=== PATIENT | male | born 1960 | race Caucasian/White ===

== ENCOUNTER 2018-05-15 01:01 | Outpatient (CLI) | payer OTHER, SELFPAY ==
[2018-05-15 14:30] LABS: Abs Immature Grans 0.01 k/cumm (0.0-0.09); Absolute Basophil Count 0.07 k/cumm (0.0-0.2); Absolute Eosinophil Count 0.18 k/cumm (0.0-0.7); Absolute Monocyte Count 0.89 k/cumm (0.11-0.7); Absolute Neutrophil Count 6.01 k/cumm (1.2-6.7); Basophils % 0.8; Eosinophils % 2.1; HGB 14.1 g/dL (13.5-17.5); Immature Grans % 0.1; Lymphocytes % 17.3; Mean Corp. HGB Concentration 35.3 g/dL (32.0-36.0); Mean Corpuscular Hemoglobin 30.5 pg (27.0-33.0); Mean Corpuscular Volume 86.6 fL (80-95); Mean Platelet Volume 9.7 fL (8.0-11.0); Monocytes % 10.3; Neutrophils % 69.4; Platelet Count 278 x1000/uL (130-400); RBC 4.62 m/cumm (4.50-6.00); RBC Distribution Width 13.4 % (11.8-14.1); White Blood Cell Count 8.66 k/cumm (4.4-10.8)
[2018-05-15 15:05] LABS: ALT 36 U/L (12-78); AST 21 U/L (15-37); Albumin 3.7 g/dL (3.4-5.0); Alkaline Phosphatase 65 U/L (46-116); Anion Gap 8.9 mmol/L (3-11); BUN 18 mg/dL (7-18); Bilirubin, Total 0.3 mg/dL (0.2-1.0); C-Reactive Protein 1.01 mg/dL (0.0-0.3); CO2 28.1 mmol/L (21.0-32.0); CREATININE 1.01 mg/dL (0.70-1.30); Calcium 9.4 mg/dL (8.5-10.1); Chloride 105 mmol/L (98-107); Glucose 98 mg/dL (70-100); Potassium 3.8 mmol/L (3.5-5.1); Sodium 142 mmol/L (136-145); Total Protein 7.3 g/dL (6.4-8.2)
[2018-05-15 15:25] LABS: ESR 7 MM/HR (1-20)
== END 2018-05-15 01:21 ==
PROVIDERS: PCP Family Medicine; Visit Provider Internal Medicine Rheumatology
DX: M85.851 Other specified disorders of bone density and structure, right thigh (principal); M85.852 Other specified disorders of bone density and structure, left thigh; M35.3 Polymyalgia rheumatica; R21 Rash and other nonspecific skin eruption; Z79.52 Long term (current) use of systemic steroids
CPT/HCPCS: 36415; 80053; 85652; 85025; 86140

== ENCOUNTER 2018-05-28 00:37 | Outpatient (CLI) | payer OTHER, SELFPAY ==
--- NOTE | 2018-05-28 15:00 | DI.RAD_ITS ---
SYMPTOM/DIAGNOSIS: OSTEOPENIA, ON CHRONIC STEROIDS FOR PMR, M85.851, M85.852 DEXA SCAN: The examination was carried out according to the usual protocol. The scanogram is unremarkable save for mild degenerative changes. For the left forearm, a T score of 1.7 and a Z score of 2.4 are within the normal range. For the left hip, a T score of -0.3 and a Z score of 0.1 indicate osteopenia and represent a -1.4% interval decrease in mineralization when compared with the previous study of 11/23/15. For the lumbar spine, a T score of 0.2 and a Z score of 0.8 are within the normal range and represent a +1% interval increase in mineralization when compared with the prior study of 11/23/15.
== END 2018-05-28 00:57 ==
PROVIDERS: PCP Family Medicine; Visit Provider Internal Medicine Rheumatology
DX: M85.88 Other specified disorders of bone density and structure, other site (principal); Z79.52 Long term (current) use of systemic steroids
CPT/HCPCS: 77080

== ENCOUNTER 2018-07-18 01:39 | Outpatient (CLI) | payer OTHER, SELFPAY ==
--- NOTE | 2018-07-18 08:01 | DI.CT_ITS ---
SYMPTOM/DIAGNOSIS: RT FLANK PAIN, HEMATURIA, HISTORY OF KIDNEY STONE R10.9 CT ABDOMEN AND PELVIS: Renal colic CT was performed according to protocol. Comparison is 11/14/10 No acute findings are seen in the lung bases. The lack of IV contrast does limit evaluation of the abdominal and pelvic organs. There is diffuse decreased attenuation of the liver consistent with hepatic steatosis. The gallbladder is negative. There is no biliary ductal dilatation. The pancreas, spleen and adrenal glands are grossly unremarkable. There is a nonobstructing 1 cm stone in the superior pole of the right kidney. No hydronephrosis or ureterolithiasis is present. The left kidney shows no nephrolithiasis, ureterolithiasis or obstruction. The urinary bladder is intact. Reproductive organs are unremarkable. There is atherosclerosis of the abdominal aorta but no aneurysmal dilatation is present. No significant abdominal or pelvic adenopathy, ascites or pneumoperitoneum is present. The bowel shows no evidence of obstruction or inflammation. There is a normal appendix present. There are mild degenerative changes seen in the spine. IMPRESSION: 1 cm stone in the superior pole of the right kidney. 2. No evidence of obstructive uropathy.
== END 2018-07-18 01:59 ==
PROVIDERS: PCP Family Medicine; Visit Provider Family Medicine
DX: R10.31 Right lower quadrant pain (principal); R31.29 Other microscopic hematuria; N20.0 Calculus of kidney
CPT/HCPCS: 74176

== ENCOUNTER 2018-08-22 07:08 | Day surgery (SDC) | payer OTHER, SELFPAY ==
[2018-08-22] VITALS (7 sets, daily range): BP systolic 148–181; BP diastolic 75–93; PULSE 63–81; RESP 11–20; TEMP 35.8–36.6; O2SAT 95–100
[2018-08-22] MEDS: Lactated Ringers 1,000 ML 80 ML IV (07:44)
[2018-08-22] MEDS: ceFAZolin 1 GM/50 ML BAG IVPB (09:08)
[2018-08-22] MEDS: Lidocaine 2% Jelly 11 ML SYR (09:14)
[2018-08-22] MEDS: Omnipaque 300 MG/ML 50 ML BTL (10:00)
--- NOTE | 2018-08-22 10:20 | W.PM.DSUDISC ---
Discharge Plan Disposition Patient Disposition: HOME Condition: Stable Discharge Details Reason For Visit: surgery Attending Provider: Philip Bautista Primary Care Provider: Alexandru Faith Home Meds and New Rx's Prescriptions: No Action alendronate 35 mg tablet 35 mg PO QWEEK RF: 0 prednisone 1 mg tablet,delayed release (DR/EC) 3 mg PO DAILY RF: 0 cholecalciferol (vitamin D3) 2,000 UNIT tablet 2,000 unit PO DAILY RF: 0 amlodipine 5 mg tablet 7.5 mg PO DAILY Qty: 135 RF: 3 loratadine 10 MG tablet 10 mg PO PRN PRNRF: 0 Discharge Instructions Additional Instructions: No need to strain urine Pt will be contacted by my office to arrange cystoscopy, remove ureteral stent, repeat flexible ureteroscopy and removal of any residual stone fragments Pt allergic to hydrocodone/oxycodone but pts tells me he does well with hydromorphone - will print and sign script Will also escribe Flomax (for ureteral spasms) and oral Toradol script Stand Alone Forms: [facility] ([facility]) Activity:: Activity as Tolerated Diet:: As Tolerated Discharge Orders Discharge Orders: Discharge Order (Routine); Ordered 08/22/18 Ordered By: Philip Bautista DS: Diagnosis Discharge Diagnosis (1) Kidney stone on right side: Status: Acute
--- NOTE | 2018-08-22 10:30 | DI.RAD_ITS ---
SYMPTOMS/DIAGNOSIS: RT KIDNEY STONE C-ARM FLUOROSCOPY: Fluoroscopy Time: 25.7s C-arm fluoroscopy was utilized by Dr. Bautista during retrograde study. Hardcopy shows right ureteral stent in position.
[2018-08-22] MEDS: Phenazopyridine 200 MG TAB PO (10:39)
--- NOTE | 2018-08-23 07:10 | ROE_ITS ---
REPORT OF OPERATIVE PROCEDURE DATE OF PROCEDURE August 22, 2018 PREOPERATIVE DIAGNOSIS Right renal stone. POSTOPERATIVE DIAGNOSIS Right renal stone. PROCEDURE Cystoscopy, right retrograde pyelogram, right flexible ureteroscopy, Holmium laser of right renal sto ne, extraction of multiple stone fragments, insert right ureteral stent. SURGEON Philip Bautista M.D. ANESTHESIA General. COMPLICATIONS None. ESTIMATED BLOOD LOSS Minimal. HISTORY This is a 58-year-old gentleman who has a history of hematuria. He was found to have a 1-cm right upp er pole stone. He has been having intermittent back pain. He presents for ureteroscopic stone manipul ation. OPERATIVE REPORT The patient was brought to the Operating Room on 08/22/18. After successful induction of general ane sthesia, he was placed in the dorsal lithotomy position. His genitalia was prepped and draped. A #22 Serbian rigid cystoscope was passed through the urethra, into the bladder. The urethra and bladd er were inspected with the 30-degree lens. The pendulous, bulbous and membranous urethras all appeared normal with no strictures. The prostatic urethra showed some lateral lobe enlargement. The bladder neck was entered and the mucosa was inspect ed. The right ureteral orifice was identified. The orifice was cannulated with a #6-Serbian access cathete r. A retrograde film was obtained using Omnipaque. On the fluoroscopy for the retrograde pyelogram, a filling defect was seen in one of the upper pole c alyces. A Dual lumen catheter was then advanced over the wire. A second wire was positioned. A ureteral acces s sheath was advanced over one of the wires and advanced to the proximal ureter. We left one of the wires in place to function as a safety wire. I then passed the flexible ureterosco pe through the access catheter and maneuvered up the remainder of the ureter. We were able to negotiate into one of the upper pole calyces and visualize the large stone. We were a ble to treat the stone using a 272 Micron Holmium laser fiber. We used a power setting of 800 and a r ate of 8. The stone fragmented quite well. We were able to grasp numerous large stone fragments using a zero-tip stone basket. Toward the end of the procedure, due to some of the bleeding caused from ma nipulation, visibility became compromised, instead of proceeding we decided to do a staged procedure. We passed a 4.8 Serbian variable length stent over the safety wire. We positioned the stent with a pr oximal end up in the renal pelvis and the distal end down in the bladder. We will plan on returning t o the Operating Room in one to two weeks. We will remove the stent, do a retrograde pyelogram, pass t he flexible ureteroscope up to the kidney and make sure that there are no remaining significant stone fragments. All of the stone fragments that were removed at this session were sent to Pathology for chemical anal ysis. CC: Alexandru Faith D.O.
[2018-08-26 16:01] LABS: Source: Right Kidney
== END 2018-08-22 11:56 | disposition home or self-care (01) ==
PROVIDERS: PCP Family Medicine; Visit Provider Urology
PROC: (CPT 52356; principal; 2018-08-22 08:30)
DX: N20.0 Calculus of kidney (principal); I10 Essential (primary) hypertension; Z96.0 Presence of urogenital implants
CPT/HCPCS: 52356; 74420; 82365; J0690; Q9967

== ENCOUNTER 2018-08-29 09:01 | Day surgery (SDC) | payer OTHER, SELFPAY ==
[2018-08-29 09:20] VITALS: BP 137/88; PULSE 68; RESP 16; TEMP 36.6; O2SAT 97
[2018-08-29] MEDS: Lactated Ringers 1,000 ML 80 ML IV (09:42)
[2018-08-29] MEDS: ceFAZolin 1 GM/50 ML BAG IVPB (11:59)
[2018-08-29] MEDS: Lidocaine 2% Jelly 6 ML SYR (12:14)
[2018-08-29] MEDS: Omnipaque 300 MG/ML 50 ML BTL (12:18)
--- NOTE | 2018-08-29 12:20 | DI.RAD_ITS ---
SYMPTOMS/DIAGNOSIS: RIGHT KIDNEY STONE RETROGRADE IN THE OR: Fluoroscopy Time: 43 seconds Images submitted from the OR demonstrate positioning of a right ureteral stent by Dr. Bautista. Please see the procedure report for further information.
--- NOTE | 2018-08-29 12:35 | W.PM.DSUDISC ---
Discharge Plan Disposition Patient Disposition: HOME Condition: Stable Discharge Details Reason For Visit: STENT REMOVAL Attending Provider: Philip Bautista Primary Care Provider: Alexandru Faith Home Meds and New Rx's Prescriptions: No Action alendronate 35 mg tablet 35 mg PO QWEEK RF: 0 prednisone 1 mg tablet,delayed release (DR/EC) 3 mg PO DAILY RF: 0 hydromorphone 4 mg tablet 4 mg PO Q6H MDD 4 PRN (Reason: pain) Qty: 20 RF: 0 cholecalciferol (vitamin D3) 2,000 UNIT tablet 2,000 unit PO DAILY RF: 0 amlodipine 5 mg tablet 7.5 mg PO DAILY Qty: 135 RF: 3 loratadine 10 MG tablet 10 mg PO PRN PRNRF: 0 ketorolac 10 mg Tablet 30 mg PO Q6H PRNRF: 0 Discharge Instructions Additional Instructions: No need to strain urine F/U with me 4 to 6 weeks with renal US prior to visit Stand Alone Forms: [facility] ([facility]) Activity:: Activity as Tolerated Activity:: Activity as Tolerated Diet:: As Tolerated Discharge Orders Discharge Orders: Discharge Order (Routine); Ordered 08/29/18 Ordered By: Philip Bautista DS: Diagnosis Discharge Diagnosis (1) Kidney stone on right side: Status: Acute
[2018-08-29 13:15] VITALS: BP 150/90; PULSE 59; RESP 18; TEMP 35.3; O2SAT 97
--- NOTE | 2018-08-30 07:44 | ROE_ITS ---
REPORT OF OPERATIVE PROCEDURE DATE OF PROCEDURE August 29, 2018 PREOPERATIVE DIAGNOSIS Right kidney stone. POSTOPERATIVE DIAGNOSIS Right kidney stone. PROCEDURES Cystoscopy, remove right ureteral stent, right retrograde pyelogram, right flexible ureteroscopy, bas ket extraction of stone fragments. SURGEON Philip Bautista M.D. ANESTHESIA General. COMPLICATIONS None. ESTIMATED BLOOD LOSS Minimal. HISTORY This is a 58-year-old gentleman who has a history of a large right-sided kidney stone. About a week a go, he underwent ureteroscopy with Holmium laser of the stone. We were able to extract the majority o f the stone fragments, but visibility became an issue and we were concerned that there remained some stone fragments within visible blood clot in the kidney lumen. We then decided to place a ureteral st ent and return a week or two later for a staged ureteroscopy procedure. He returns for the second in these stages. OPERATIVE REPORT The patient was brought to the Operating Room on 08/29/2018. He was given preoperative IV antibiotics. After successful induction of General anesthesia, he was placed in the dorsal lithotomy position. His genitalia was prepped and draped. A #22-Jamaican rigid cystoscopy was passed through the urethra into the bladder. The bladder was inspec cynthia with a 30-degree lens. There was a marked amount of edema around the right ureteral orifice. The stent could be seen protrud ing from the orifice. The stent was grasped in alligator forceps and brought out to the level of the urethral meatus. A Glidewire was then advanced through the lumen of the stent. Once the wire was seen up in the right kidney fluoroscopically, we removed the stent leaving the wire in place. A ureteral access catheter was then advanced over the wire. Once the access catheter was seen in the mid ureter, we removed the wire. A retrograde pyelogram was then obtained. There did appear to be some filling defects in the upper po le calyx. We then replaced the Glidewire and removed the access catheter. A Dual lumen catheter was placed foll owed by a second wire. We chose one of the wires as a working wire and the other as a safety wire. A ureteral access sheath was advanced over the working wire. The flexible ureteral scope was then passed through the access sheath and maneuvered up to the right kidney. Some blood clot was seen in the upper pole calyx and there did appear to be two stone fragmen ts adherent to these clots. I was able to grasp the stone fragments in a Zero Tip stone basket and re move these in their entirety. I then re-introduced the scope and saw no additional stone fragments. We elected not to replace his s tent. The patient tolerated the procedure well. There were no complications since we had samples of the sto ne from a week ago sent for stone analysis, we did not re-send today's specimens. CC: Alexandru Faith D.O.
== END 2018-08-29 13:40 | disposition home or self-care (01) ==
PROVIDERS: PCP Family Medicine; Visit Provider Urology
PROC: (CPT 52352; principal; 2018-08-29 11:30)
DX: N20.0 Calculus of kidney (principal); Z96.0 Presence of urogenital implants
CPT/HCPCS: 52352; 74420; J0131; J0690; J1100; J1885; J2250; J2405; J3010; Q9967

== ENCOUNTER 2018-10-11 01:36 | Outpatient (CLI) | payer OTHER, SELFPAY ==
--- NOTE | 2018-10-11 06:52 | DI.US_ITS ---
SYMPTOM/DIAGNOSIS: CALCULUS OF KIDNEY N20.0, ? HYDRONEPHROSIS, S/P URETEROSCOPY RENAL ULTRASOUND: Comparison CT scan is 07/18/18 There is mild dilatation of the right renal pelvis. There is normal blood flow to the right kidney. The left kidney measures 11 cm long. No renal mass, calculus or obstruction is seen sonographically. There is normal blood flow to the left kidney. The pre-void urinary bladder volume is 24 cc. The bladder wall appeared smooth. No intraluminal masses were seen. Both ureteral jets were visualized. The post void urinary bladder volume is 5 cc. The prostatic volume is 26 cc. IMPRESSION: 1. Right nephrolithiasis 2. Mild dilatation of the right renal pelvis. This may represent hydronephrosis vs prominent extra renal pelvis.
== END 2018-10-11 01:56 ==
PROVIDERS: PCP Family Medicine; Visit Provider Urology
DX: N20.0 Calculus of kidney (principal); R93.89 Abnormal findings on diagnostic imaging of other specified body structures
CPT/HCPCS: 76770

== ENCOUNTER 2018-10-20 02:12 | Outpatient (CLI) | payer OTHER, SELFPAY ==
[2018-10-20 09:36] LABS: Abs Immature Grans 0.02 k/cumm (0.0-0.09); Absolute Eosinophil Count 0.24 k/cumm (0.0-0.7); Absolute Lymphocyte Count 1.37 k/cumm (1.2-3.4); Absolute Monocyte Count 0.75 k/cumm (0.11-0.7); Absolute Neutrophil Count 8.53 k/cumm (1.2-6.7); Basophils % 0.5; Eosinophils % 2.2; HGB 15.3 g/dL (13.5-17.5); Immature Grans % 0.2; Lymphocytes % 12.5; Mean Corp. HGB Concentration 35.6 g/dL (32.0-36.0); Mean Corpuscular Hemoglobin 30.7 pg (27.0-33.0); Mean Corpuscular Volume 86.2 fL (80-95); Mean Platelet Volume 10.5 fL (8.0-11.0); Monocytes % 6.8; Neutrophils % 77.8; Platelet Count 239 x1000/uL (130-400); RBC 4.99 m/cumm (4.50-6.00); RBC Distribution Width 13.2 % (11.8-14.1); White Blood Cell Count 10.97 k/cumm (4.4-10.8)
[2018-10-20 09:39] LABS: Absolute Basophil Count 0.05 k/cumm (0.0-0.2)
[2018-10-20 10:41] LABS: ALT 44 U/L (12-78); AST 24 U/L (15-37); Alkaline Phosphatase 65 U/L (46-116); Anion Gap 10.8 mmol/L (3-11); BUN 15 mg/dL (7-18); Bilirubin, Total 0.6 mg/dL (0.2-1.0); CO2 26.2 mmol/L (21.0-32.0); CREATININE 0.86 mg/dL (0.70-1.30); Calcium 9.3 mg/dL (8.5-10.1); Calculated LDL 139; Chloride 102 mmol/L (98-107); Cholesterol 238 mg/dL (50-200); Glucose 111 mg/dL (70-100); HDL Cholesterol 64 mg/dL (40-60); Potassium 4.2 mmol/L (3.5-5.1); Sodium 139 mmol/L (136-145); Total Protein 7.1 g/dL (6.4-8.2); Triglyceride 179 mg/dL (30-150)
[2018-10-20 10:52] LABS: C-Reactive Protein 0.23 mg/dL (0.0-0.3)
[2018-10-20 10:55] LABS: ESR 4 MM/HR (1-20)
== END 2018-10-20 02:32 ==
PROVIDERS: PCP Family Medicine; Visit Provider Internal Medicine Rheumatology
DX: M35.3 Polymyalgia rheumatica (principal); M85.80 Other specified disorders of bone density and structure, unspecified site; G56.02 Carpal tunnel syndrome, left upper limb; Z79.52 Long term (current) use of systemic steroids
CPT/HCPCS: 36415; 80053; 80061; 83721; 85652; 85025; 86140

== ENCOUNTER 2018-12-13 02:20 | Outpatient (CLI) | payer OTHER, SELFPAY ==
--- NOTE | 2018-12-13 14:16 | DI.US_ITS ---
SYMPTOMS/DIAGNOSIS: PERSISTENT HYDRONEPHROSIS, KIDNEY STONE ON RIGHT SIDE, N20.0 RENAL ULTRASOUND: The kidneys are normal in size and shape. There appears to be mild hydronephrosis on the right, slightly less prominent than on most recent ultrasound of 10/11/2018. There is an echogenic focus of the right kidney in the mid pole, measuring about 4 mm in diameter. This corresponds with a calculus identified on CT on 07/18/2018. No additional stone seen. No left hydronephrosis or nephrolithiasis. Urinary bladder is unremarkable in appearance with prevoid and postvoid urinary bladder volume measurements 41 cc and 7 cc, respectively. Ureteral jets were visualized bilaterally. CONCLUSION: Mild right hydronephrosis, mid pole right renal calculus.
== END 2018-12-13 02:40 ==
PROVIDERS: PCP Family Medicine; Visit Provider Urology
DX: N13.39 Other hydronephrosis (principal)
CPT/HCPCS: 76770

== ENCOUNTER 2019-06-25 14:21 | Outpatient (CLI) | payer OTHER, SELFPAY ==
[2019-06-25 14:39] LABS: Absolute Basophil Count 0.06 k/cumm (0.0-0.2); Absolute Eosinophil Count 0.23 k/cumm (0.0-0.7); Absolute Lymphocyte Count 1.66 k/cumm (1.2-3.4); Absolute Monocyte Count 0.63 k/cumm (0.11-0.7); Absolute Neutrophil Count 4.44 k/cumm (1.2-6.7); Basophils % 0.9; Eosinophils % 3.3; HCT 41.2 % (40.0-50.0); HGB 14.6 g/dL (13.5-17.5); Lymphocytes % 23.6; Mean Corp. HGB Concentration 35.4 g/dL (32.0-36.0); Mean Corpuscular Hemoglobin 30.5 pg (27.0-33.0); Mean Corpuscular Volume 86.2 fL (80-95); Mean Platelet Volume 10.1 fL (8.0-11.0); Neutrophils % 63.2; Platelet Count 265 x1000/uL (130-400); RBC 4.78 m/cumm (4.50-6.00); RBC Distribution Width 13.2 % (11.8-14.1); White Blood Cell Count 7.02 k/cumm (4.4-10.8)
[2019-06-25 15:27] LABS: ESR 8 mm/hr (1-20)
[2019-06-25 15:38] LABS: ALT 45 U/L (16-63); AST 25 U/L (15-37); Alkaline Phosphatase 53 U/L (46-116); Anion Gap 8.9 mmol/L (3-11); BUN 13 mg/dL (7-18); Bilirubin, Total 0.3 mg/dL (0.2-1.0); C-Reactive Protein 0.35 mg/dL (0.0-0.3); CO2 29.1 mmol/L (21.0-32.0); CREATININE 0.82 mg/dL (0.70-1.30); Chloride 105 mmol/L (98-107); Glucose 94 mg/dL (74-106); Sodium 143 mmol/L (136-145); Total Protein 6.8 g/dL (6.4-8.2)
== END 2019-06-25 14:41 ==
PROVIDERS: PCP Family Medicine; Visit Provider Internal Medicine Rheumatology
DX: M35.3 Polymyalgia rheumatica (principal); Z79.899 Other long term (current) drug therapy
CPT/HCPCS: 36415; 80053; 85652; 85025; 86140

== ENCOUNTER 2019-12-18 01:03 | Outpatient (CLI) | payer OTHER, SELFPAY ==
--- NOTE | 2019-12-18 07:30 | DI.US_ITS ---
EXAM: US RENAL CLINICAL HISTORY: monitor stones yearly,RT KIDNEY STONE,N20.0. TECHNIQUE: Up scale, color and spectral Doppler were used. COMPARISON: CT CT renal colic wo from 07/18/2018 US US renal from 12/13/2018 FINDINGS: Renal size in cm: Right: 11.6. Left: 11.5. Echogenicity: Normal. Hydronephrosis: No. Cyst or mass: No. Nephrolithiasis: The echogenic focus in the midpole of the right kidney appears stable. There is a 2 nd echogenic focus in the right kidney superiorly measuring 4.6 mm. Other findings: None. Bladder:Not adequately filled for examination. 7.2 cc. Ureteral jets: Right: Not visualized on this exam. Left: Not visualized on this exam. Prevoid vol:7.2 cc cc Postvoid vol:Bladder not adequately filled. Cc Prostate: 37 cc Renal color flow: Symmetric and within normal limits. IMPRESSION: 1. Stable echogenic focus in the right kidney. Second echogenic focus seen in superior pole of the r ight kidney. These likely reflect nonobstructing stones. 2. Enlarged prostate. 3. No hydronephrosis. DATA REPOSITORY:
== END 2019-12-18 01:23 ==
PROVIDERS: PCP Family Medicine; Visit Provider Urology
DX: N20.0 Calculus of kidney (principal); N40.0 Benign prostatic hyperplasia without lower urinary tract symptoms
CPT/HCPCS: 76770

== ENCOUNTER 2019-12-31 03:05 | Outpatient (CLI) | payer OTHER, SELFPAY ==
[2019-12-31 16:33] LABS: ESR 9 mm/hr (1-20)
[2019-12-31 16:47] LABS: C-Reactive Protein 0.95 mg/dL (0.0-0.3)
== END 2019-12-31 03:25 ==
PROVIDERS: PCP Family Medicine; Visit Provider Internal Medicine Rheumatology
DX: M35.3 Polymyalgia rheumatica (principal); M85.80 Other specified disorders of bone density and structure, unspecified site; Z79.52 Long term (current) use of systemic steroids
CPT/HCPCS: 36415; 85652; 86140

== ENCOUNTER 2020-01-19 01:20 | Outpatient (CLI) | payer OTHER, SELFPAY ==
--- NOTE | 2020-01-19 14:50 | DI.MRI_ITS ---
EXAM: MR LOWER EXTREMITY RT WO CLINICAL HISTORY: RT FOOT PAIN, M79.671, SWELLING OVER CALCANEUS MID FOOT PLANTAR FASCIA. TECHNIQUE: Multiplanar multisequence MRI was performed. COMPARISON: No exams were available for comparison FINDINGS: MR examination the foot was performed according to the usual protocol. The imaging field does not co ntain Achilles tendon. The patient reportedly has suspected plantar fasciitis midfoot. There is abnormal signal of the calcaneus adjacent to plantar fascial attachment. No other significa nt bony signal seen. There is abnormal signal in the flexor digitorum brevis and abductor digiti minimi muscles at the hin dfoot consistent with muscle edema/tearing. There is thickening of the plantar fascia adjacent to its calcaneal attachment with a tear of the mitesh tral band with approximately 6 millimeter diastasis. The medial and lateral bands show mild thickeni ng and edema but do not appear torn. More distally the plantar fascia appears intact. No tendinous abnormality identified. No significan t ligamentous abnormality seen. Alignment of the hindfoot and midfoot appear within normal limits. IMPRESSION: Severe plantar fasciitis with 6 millimeter tear of the central band and with associated muscle tearin g and edema of the flexor digitorum brevis and abductor digiti minimi muscles. DATA REPOSITORY:
== END 2020-01-19 01:40 ==
PROVIDERS: PCP Family Medicine; Visit Provider Internal Medicine Rheumatology
DX: M72.2 Plantar fascial fibromatosis (principal); S96.011A Strain of muscle and tendon of long flexor muscle of toe at ankle and foot level, right foot, initial encounter
CPT/HCPCS: 73718

== ENCOUNTER 2020-04-07 04:08 | Outpatient (CLI) | payer OTHER, SELFPAY ==
[2020-04-07 16:48] LABS: ESR 6 mm/hr (1-20)
[2020-04-07 17:05] LABS: C-Reactive Protein 0.57 mg/dL (0.0-0.3)
[2020-04-09 09:31] LABS: HBs Antibody, Quant <3.1 mIU/mL (See Note); Hepatitis B Surface Ab Negative (See Note)
[2020-04-09 09:41] LABS: Hepatitis B Surface Ag Negative (Negative)
[2020-04-09 10:23] LABS: Hepatitis C Ab w Rflx HCV PCR Negative (Negative)
== END 2020-04-07 04:28 ==
PROVIDERS: PCP Family Medicine; Visit Provider Internal Medicine Rheumatology
DX: M35.3 Polymyalgia rheumatica (principal); M85.80 Other specified disorders of bone density and structure, unspecified site; L43.9 Lichen planus, unspecified; Z79.52 Long term (current) use of systemic steroids
CPT/HCPCS: 36415; 85652; 86706; 86803; 87340; 86140; 86704

== ENCOUNTER 2020-08-04 01:24 | Outpatient (CLI) | payer OTHER, SELFPAY ==
--- NOTE | 2020-08-04 | DI.DEXA_ITS ---
EXAM: XR DEXA BONE DENSITY W/WO CONRAD CLINICAL HISTORY: OSTEOPENIA,UNSPECIFIED,M85.80,ON CHRONIC STEROIDS,ON FOSAMAX,ASSESS FOR TECHNIQUE: Routine DEXA evaluation of the lumbar spine, hip, or forearm. COMPARISON: Prior DXA scans November 2015 in May 2018 FINDINGS: Performed on a Holocicayda unit. Lateral image: No compression fracture evident. Lumbar Spine total T-score: 0.5. Prior T-score reading May 2018 was 0.2 Hip total T-score:-0.4. Prior T-score reading May 2018 was -0.3 Independent reading at the level of the left femoral neck today of the T-score of -1.6 Forearm total T-score: 1.2 IMPRESSION: Bone mineral density measures in the osteopenia range. Fracture risk is moderate. Note: Any spine fracture indicates 5x risk for subsequent spine fracture and 2x risk for subsequent h ip fracture. World Health Organization criteria for BMD interpretation classify patients: Normal...... T- Score at or above -1.0 Osteopenic... T- Score between -1.0 and -2.5 Osteoporosis... T-Score at or below -2.5
== END 2020-08-04 01:44 ==
PROVIDERS: PCP Family Medicine; Visit Provider Internal Medicine Rheumatology
DX: M85.88 Other specified disorders of bone density and structure, other site (principal); Z79.52 Long term (current) use of systemic steroids
CPT/HCPCS: 77080

== ENCOUNTER 2020-08-17 03:37 | Outpatient (CLI) | payer OTHER, SELFPAY ==
[2020-08-17 07:24] LABS: Abs Immature Grans 0.01 10^3/uL (0.0-0.06); Absolute Eosinophil Count 0.33 10^3/uL (0.0-0.7); Absolute Lymphocyte Count 1.82 10^3/uL (1.2-3.4); Absolute Monocyte Count 0.65 10^3/uL (0.1-0.8); Absolute Neutrophil Count 3.33 10^3/uL (1.2-6.7); Basophils % 1.6; ESR 2 mm//hr (0-20); Eosinophils % 5.3; HCT 43.4 % (40.0-50.0); HGB 14.9 g/dL (13.5-17.5); Immature Grans % 0.2; Lymphocytes % 29.2; MCH 30.1 pg (27.0-33.0); MCHC 34.3 % (32.0-36.0); MCV 87.7 fL (80-95); Monocytes % 10.4; Neutrophils % 53.3; Nucleated RBC 0 %; Platelet Count 228 10^3/uL (130-400); RBC 4.95 10^6/uL (4.36-5.78); RDW 12.5 % (11.8-14.1); RDW-SD 40.6 fL; WBC 6.24 10^3/uL (4.4-10.8)
[2020-08-17 08:32] LABS: Calculated LDL 126 mg/dL (<100); Cholesterol 225 mg/dL (<200); HDL Cholesterol 75 mg/dL (40-60); Triglyceride 124 mg/dL (<150)
[2020-08-17 08:33] LABS: ALT 52 U/L (16-63); AST 30 U/L (15-37); Alkaline Phosphatase 58 U/L (46-116); Anion Gap 10.5 mmol/L (3-11); BUN 14 mg/dL (7-18); Bilirubin, Total 0.7 mg/dL (0.2-1.0); C-Reactive Protein 0.44 mg/dL (0.0-0.3); CO2 27.5 mmol/L (21.0-32.0); CREATININE 0.8 mg/dL (0.70-1.30); Calcium 9.3 mg/dL (8.5-10.1); Chloride 104 mmol/L (98-107); Glucose 119 mg/dL (74-106); Sodium 142 mmol/L (136-145); Total Protein 7.1 g/dL (6.4-8.2)
[2020-08-19 05:25] LABS: Vitamin D 25 Total 33.9 ng/mL (30-100)
== END 2020-08-17 03:38 | disposition home or self-care (01) ==
LOC: LBO 03:38
PROVIDERS: PCP Family Medicine; Visit Provider Internal Medicine Rheumatology
DX: E78.5 Hyperlipidemia, unspecified (principal); M35.3 Polymyalgia rheumatica; Z79.52 Long term (current) use of systemic steroids; M85.80 Other specified disorders of bone density and structure, unspecified site; M89.49 Other hypertrophic osteoarthropathy, multiple sites
CPT/HCPCS: 36415; 80053; 80061; 82306; 85652; 85025; 86140

== ENCOUNTER 2020-10-11 04:44 | Outpatient (CLI) | payer OTHER, SELFPAY ==
[2020-10-11 22:28] LABS: PSA, Screening 1.1 ng/mL (0.0-3.5)
[2020-10-12 10:33] LABS: HIV-1/2 Ag & Ab Screen Negative (Negative)
== END 2020-10-11 04:45 | disposition home or self-care (01) ==
LOC: LBO 04:44
PROVIDERS: Nurse Practitioner; PCP Family Medicine; Visit Provider Family Medicine
DX: N40.0 Benign prostatic hyperplasia without lower urinary tract symptoms (principal); Z12.5 Encounter for screening for malignant neoplasm of prostate; Z11.4 Encounter for screening for human immunodeficiency virus [HIV]
CPT/HCPCS: 36415; 84153; 87389

== ENCOUNTER 2020-10-20 00:42 | Outpatient (CLI) | payer OTHER, SELFPAY ==
--- NOTE | 2020-10-20 07:30 | DI.NM_ITS ---
Exam(s) NM BONE SCAN WHOLE BODY GRP EXAM: NM BONE SCAN WHOLE BODY GRP CLINICAL HISTORY: bone islands vs metastastes on CT. No cancer hx,R93.89. TECHNIQUE: Injected Dose: 25 mCi Tc-99m MDP Delayed Images: 2-3 hours. COMPARISON: CT CT renal colic wo from 07/18/[address] RENAL COLIC WO from 10/06/[address] RENAL COLIC WO from 10/06/2020 FINDINGS: There is no abnormal uptake seen in the right side of the sacrum to correspond to the finding on rece nt CT scan. Only focus of increased uptake in the pelvis is on the anterosuperior aspect of the righ t hip acetabulum where there is an unchanged avulsion-type fragment as was also evident on the CT sca n of July 2018. There is no other abnormal uptake in the hips. Some uptake in the medial aspect of the right knee is noted consistent with degenerative change and there are 5 multiple foci of degener ative change uptake in the feet. No abnormal uptake seen in the upper extremities and rib cages nor in the skull. There is a small focus of increased uptake seen in the mid thoracic spine at the costo vertebral junction region of what is probably T6 or T7. This is most probably degenerative. IMPRESSION: 1. No evidence of osseous metastatic disease on this nuclear bone scan. DATA REPOSITORY:
== END 2020-10-20 01:02 ==
PROVIDERS: PCP Family Medicine; Visit Provider Nurse Practitioner
DX: R93.89 Abnormal findings on diagnostic imaging of other specified body structures (principal)
CPT/HCPCS: 78306

== ENCOUNTER 2020-11-08 09:34 | Emergency (ER) | payer OTHER, SELFPAY ==
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
[2020-11-08 09:39] VITALS: BP 129/77; PULSE 80; RESP 16; TEMP 36.6; O2SAT 98
--- NOTE | 2020-11-08 10:00 | DI.CT_ITS ---
Exam(s) CT RENAL COLIC WO EXAM: CT RENAL COLIC WO CLINICAL HISTORY: R flank pain, R groin and thigh pain. TECHNIQUE: Imaging Protocol: Axial computed tomography images with coronal and sagittal reformatted images were created and reviewed. CONTRAST MATERIAL: Noncontrast COMPARISON: CT CT RENAL COLIC WO from 10/06/2020 FINDINGS: ABDOMEN: Lung Bases: Normal where visualized. Liver: fatty infiltration. No measurable mass. Gallbladder and biliary tract: No radiodense calculus or dilation. Pancreas: Normal density, no calcifications or inflammatory process. Spleen: Normal. Kidneys: Normal size, contour and axis. Two to 3 millimeter stone in the proximal right ureter, uncha nged in position. Small stone upper pole right kidney.. No masses seen. Adrenal glands: No masses seen. Abdominal Aorta: Abdominal portion non-dilated. Atherosclerotic changes. PELVIS: Bladder: Symmetric distention, no gross wall thickening. Enlarged prostate. Bowel: No obstruction or bowel wall thickening. Peritoneal cavity: No ascites, collection or mesenteric inflammatory response. Bones: Degenerative changes. Heterotopic calcification proximal right rectus femoris muscle. IMPRESSION: No change in tiny stone in the upper right ureter. Mild right hydronephrosis. RADIATION DOSE DELIVERED: 863.52mGy.cm Total DLP DATA REPOSITORY: All CT scans at this facility are submitted to the National Radiology Data Registry (NRDR) Dose Index Registry (DIR) with the [employer] (ACR). RADIATION OPTIMIZATION: All CT scans at this facility use at least one of these dose optimization te chniques: automated exposure control; mA and/or kV adjustment per patient size (includes targeted exa ms where dose is matched to clinical indication); or iterative reconstruction.
[2020-11-08] MEDS: Normal Saline 1,000 ML 1000 ML IV (10:13)
[2020-11-08 10:14] LABS: Abs Immature Grans 0.04 10^3/uL (0.0-0.06); Absolute Basophil Count 0.06 10^3/uL (0.0-0.2); Absolute Monocyte Count 1.14 10^3/uL (0.1-0.8); Absolute Neutrophil Count 8.31 10^3/uL (1.2-6.7); Basophils % 0.5; Eosinophils % 0.9; HCT 42.7 % (40.0-50.0); HGB 14.5 g/dL (13.5-17.5); Immature Grans % 0.4; Lymphocytes % 14.2; MCH 29.8 pg (27.0-33.0); MCV 87.9 fL (80-95); MPV 10.5 fL (8.0-11.0); Monocytes % 10.1; Neutrophils % 73.9; Nucleated RBC 0 %; Platelet Count 248 10^3/uL (130-400); RBC 4.86 10^6/uL (4.36-5.78); RDW 12.5 % (11.8-14.1); RDW-SD 40.8 fL; WBC 11.24 10^3/uL (4.4-10.8)
[2020-11-08] MEDS: Ketorolac 30 MG/ML VIAL IVP (10:14)
[2020-11-08] MEDS: Ondansetron 4 MG/2 ML VIAL IVP (10:14)
[2020-11-08 10:17] LABS: Bilirubin Negative (Negative); Blood Negative (Negative); Clarity Clear (Clear); Glucose Negative (Negative); Ketones Trace mg/dL (Negative); Leukocyte Esterase Negative (Negative); Nitrite Negative (Negative); Specific Gravity 1.015 (1.005-1.025); Urobilinogen 0.2 EU/dL (Up TO 0.2)
[2020-11-08 10:26] LABS: ALT 37 U/L (16-63); AST 16 U/L (15-37); Albumin 3.9 g/dL (3.4-5.0); Alkaline Phosphatase 61 U/L (46-116); Anion Gap 7.7 mmol/L (3-11); BUN 11 mg/dL (7-18); CO2 28.3 mmol/L (21.0-32.0); Calcium 9.1 mg/dL (8.5-10.1); Chloride 102 mmol/L (98-107); Glucose 115 mg/dL (74-106); Potassium 3.7 mmol/L (3.5-5.1); Sodium 138 mmol/L (136-145); Total Protein 7.7 g/dL (6.4-8.2)
--- NOTE | 2020-11-08 11:21 | DI.VRAD_ITS ---
PROCEDURE INFORMATION: Exam: CT Abdomen And Pelvis Without Contrast Exam date and time: 11/08/2020 10:06 AM Age: 60 years old Clinical indication: Pain; Other: Right facial droop, dysphagia TECHNIQUE: Imaging protocol: Computed tomography of the abdomen and pelvis without contrast. COMPARISON: NM BONE SCAN WHOLE BODY GRP 10/20/2020 1:47 PM FINDINGS: Liver: Marked diffuse fatty infiltration of the liver. Gallbladder and bile ducts: Normal. No calcified stones. No ductal dilation. Pancreas: Normal. No ductal dilation. Spleen: Normal. No splenomegaly. Adrenal glands: Benign appearing thickening of the left adrenal gland. Kidneys and ureters: Tiny, 2-3 mm stable stone in the proximal right ureter, just below the ureteropelvic junction best seen on axial series 2, image 75. Mild right hydronephrosis. Stable vague 3 mm cortical calcifications upper pole right kidney. Stomach and bowel: Unremarkable. No obstruction. No mucosal thickening. Appendix: No evidence of appendicitis. Intraperitoneal space: Unremarkable. No free air. No significant fluid collection. Vasculature: Diffuse vascular calcifications. No aneurysm identified. Lymph nodes: Stable prominent upper retroperitoneal lymph nodes. Urinary bladder: Unremarkable as visualized. Reproductive: Prostatic calcifications. Prostatic enlargement. Bones/joints: Degenerative arthritis in the spine and pelvis. Old avulsion proximal attachment of rectus femoris with associated heterotopic ossification. Soft tissues: Unremarkable. IMPRESSION: 1. Stable 2-3 mm stone in the proximal right ureter with mild right hydronephrosis. 2. Marked fatty infiltration of the liver 3. Other incidental findings as described Dictated and Authenticated by: Kathi Frost MD. Ordering:ALBANIA Garnica MD
--- NOTE | 2020-11-08 11:35 | NUR.NOTE ---
Nursing Note: Referral faxed to [facility] for follow up of kidney stone and potential stent placement. Mary Ramos
[2020-11-08] MEDS: Tamsulosin 0.4 MG CAPCR PO (11:49)
[2020-11-08 11:59] VITALS: BP 139/82; PULSE 70; TEMP 36.5; O2SAT 96
== END 2020-11-08 12:07 | disposition home or self-care (01) ==
PROVIDERS: Emergency Provider Physician Assistant; PCP Family Medicine
DX: N13.2 Hydronephrosis with renal and ureteral calculous obstruction (principal); Z87.442 Personal history of urinary calculi
CPT/HCPCS: 36415; 80053; 96361; 96374; 96375; 99284; 74176; 81003; 85025; J1885; J2405

== ENCOUNTER 2020-11-22 05:03 | Emergency (ER) | payer OTHER, SELFPAY ==
[2020-11-22 05:08] VITALS: BP 143/69; PULSE 107; RESP 24; TEMP 36.2
--- NOTE | 2020-11-22 05:15 | DI.RAD_ITS ---
Exam(s) XR CHEST 2V PA LATERAL EXAM: XR CHEST 2V PA LATERAL CLINICAL HISTORY: cough, fever. TECHNIQUE: 2D digital imaging was performed. COMPARISON: No exams were available for comparison FINDINGS: Heart size is normal. The mediastinum is not widened. Lungs are clear. No infiltrates nor pleural effusions. IMPRESSION: No acute pulmonary findings. DATA REPOSITORY: RADIATION DOSE DELIVERED:
--- NOTE | 2020-11-22 05:15 | DI.CT_ITS ---
Exam(s) CT RENAL COLIC WO EXAM: CT RENAL COLIC WO CLINICAL HISTORY: known right sided stone, now febrile. TECHNIQUE: Imaging Protocol: Axial computed tomography images with coronal and sagittal reformatted images were created and reviewed CONTRAST MATERIAL: Intravenous: none Oral: None COMPARISON: CT CT RENAL COLIC WO from 11/08/2020 FINDINGS: VISUALIZED LUNG BASES: No nodules nor pleural effusions evident. ABDOMEN: There is no ascites. LIVER: Liver is hypodense implying steatosis. Similar to previous. There are no discrete focal hepa tic lesions. No dilatation of intrahepatic ducts. GALLBLADDER/BILIARY: No obvious gallbladder pathology. CBD is not dilated. PANCREAS: No evidence of pancreatic mass nor dilatation of the pancreatic duct. SPLEEN: Spleen is not enlarged. No obvious intrasplenic lesions. ADRENALS: Right adrenal gland is unremarkable. Some thickening of the left adrenal gland is noted, p articularly lateral limb. KIDNEYS:Left kidney is unremarkable. In the right kidney there is a 1-2 millimeter calculus in the l ateral cortex. There is a 2-3 millimeter calculus in the upper right ureter at the ureteropelvic ariadna ction region. No calculi lower down in the ureter nor in the nondistended urinary bladder. Bladder wall is slightly thickened.. ABDOMINAL AORTA: Abdominal aorta is not enlarged. LYMPH NODES: There is no retroperitoneal nor paraaortic adenopathy. ABDOMINAL WALL: No evidence of significant anterior abdominal wall hernia. GI: There is no evidence of bowel obstruction, free air, nor abscess. PELVIS: LYMPH NODES: There is no intrapelvic nor inguinal adenopathy. GI: No evidence of appendicitis.No evidence of sigmoid diverticulitis. URINARY BLADDER: No calculi nor obvious masses evident REPRODUCTIVE: Size upper normal. Seminal vesicles unremarkable OSSEOUS: Sclerotic unchanged bone island noted in the anterior right side of the sacrum, unchanged. No lytic osseous lesions evident. IMPRESSION: 1. Subtle nephrocalcinosis and there is a punctate 2-3 millimeter calculus at the right ureteropelvic junction level. Mild dilatation collecting system above this level. No other calculi seen in the r ight ureter nor in the urinary bladder. There is mild uniform thickening of the urinary bladder wall . The bladder is not distended. Prostate size upper normal. 2. Hepatic steatosis 3. No ascites. RADIATION DOSE DELIVERED: 741.32mGy.cm Total DLP DATA REPOSITORY: All CT scans at this facility are submitted to the National Radiology Data Registry (NRDR) Dose Index Registry (DIR) with the [employer] (ACR). RADIATION OPTIMIZATION: All CT scans at this facility use at least one of these dose optimization te chniques: automated exposure control; mA and/or kV adjustment per patient size (includes targeted exa ms where dose is matched to clinical indication); or iterative reconstruction.
--- NOTE | 2020-11-22 05:19 | W.ED.GENAD ---
Discharge Plan Disposition Patient Disposition: HOME Condition: Good Discharge Details Clinical Impression: Right flank pain, Transaminitis Primary Care Provider: Alexandru Faith ED Provider: Radha Jorge Home Meds and New Rx's Prescriptions: Continued amlodipine 10 mg tablet 10 mg PO DAILY Qty: 90 RF: 3 atorvastatin 20 mg tablet 20 mg PO QHS Qty: 90 RF: 3 oxycodone 5 mg tablet 5 mg PO BID MDD 10mg PRN (Reason: pain) Qty: 4 RF: 0 cholecalciferol (vitamin D3) 2,000 UNIT tablet 2,000 unit PO DAILY RF: 0 prednisone 1 mg tablet,delayed release (DR/EC) 2 mg PO DAILY RF: 0 alendronate 35 mg tablet 35 mg PO QWEEK RF: 0 loratadine 10 MG tablet 10 mg PO PRN PRNRF: 0 Discontinued tamsulosin [Flomax] 0.4 mg capsule 0.4 mg PO DAILY Qty: 30 RF: 0 Discharge Instructions Instructions: Flank Pain (ED) Additional Instructions: Please return immediately to the emergency department if you develop any new or worsening symptoms, if your condition does not improve as expected, or if you become otherwise concerned. It is extremely important that you call soon as possible to make an appointment to be seen in follow-up for this visit by your primary care doctor. Referrals: Alexandru Faith DO [Primary Care Provider] - Medical Decision Making <Randal Leon DO - Last Filed: 11/22/20 07:39> This is a 60-year-old male with past medical history of hypertension, high cholesterol, polymyalgia rheumatica, who presents today for evaluation of right flank pain. Patient was diagnosed with a kidney stone in his proximal right ureter in early October, and then on November 08 he had a recurrence of his pain, CAT scan at that time showed no significant movement of the stone albeit a small stone. Pain was controlled on an outpatient basis, follow-up with Dr. Bautista shortly thereafter continued to show no passage of the stone, however the patient's pain was controlled and so patient elected to wait until after his upcoming vacation to potentially have the stone removed. Unfortunately over the last 3 days the patient has had a notable recurrence of his pain, and most concerningly over the last 2 days he has had a recurrent fever with a T-max of 103-105. Temperature is been intermittently controlled with Tylenol and Motrin. He admits to notable chills and generalized aches everywhere. He denies chest pain or shortness of breath but does admit to a very mild cough. Unfortunately the patient is scheduled to leave for vacation in 3 days. Patient has no other complaints at this time. He denies any numbness tingling or weakness. He denies any vomiting or diarrhea. He does admit to dysuria. Pain radiates to the right groin but no testicular pain. Physical exam demonstrates no significant reproducible tenderness in the abdomen, however notable subjective tenderness in the right flank and right groin. No redness or swelling or signs of torsion. Patient is afebrile right now however he has been taking Tylenol and Motrin very recently to help control his fever. With his history of continued pain I am very concerned for a septic stone. We will treat immediately with 2 g of cefepime, a repeat CAT scan to evaluate for stone placement, rehydrate, monitor closely and reassess. Suspect the patient will need potential stenting today 7:35 AM Laboratory work-up is slightly atypical. Lactate is elevated at 3.1, however the patient has no white count or bandemia or left shift. Renal function is good. Minimal transaminitis. Urinalysis demonstrates 3-5 RBCs but no nitrates, no leuk esterase, and no WBCs. CT scan shows a very small 1 mm punctate stone at the right UPJ. Mild bladder wall thickening, but no diverticulitis. Chest x-ray shows no pneumonia. On reassessment the patient's pain is completely better. He states that the pain completely resolved just before CAT scan. Uncertain as to how all of these factors come into play, I wonder if the patient had a right-sided kidney stone that subsequently passed just prior to CAT scan as the current stone is not in the location of the previous one. And is much more proximal for that matter. The patient remains afebrile here, and with a negative Covid test, and no other clear source of infection I am uncertain as to the nature of his fever at home. There is a chance that this may be a component of his polymyalgia rheumatica and chronic steroid use. I did contact Dr. Bautista and discussed the case with him. He agrees and sees no clear evidence of on his review of the case and images of an infectious stone or the need for acute surgical management. Hydrate the patient with an additional 500 cc of normal saline, get a repeat lactate to evaluate for downward trend. If the patient continues to be pain-free, shows no signs of other systemic infection, and the lactate is improving I feel that he can be discharged home with close follow-up with urology on an outpatient basis. Patient will be signed out to my colleague Dr. Radha Jorge FINDINGS: Lungs: Lung bases are clear. Liver: Diffuse hepatic steatosis. Gallbladder and bile ducts: Unremarkable without gallstones. No intra or extrahepatic ductal dilation. Pancreas: No peripancreatic inflammatory infiltration or fluid. No ductal dilation. Spleen: No splenomegaly or splenic mass. Adrenal glands: Normal. No mass. Kidneys and ureters: There is subtle bilateral medullary nephrocalcinosis and punctate right nephrolithiasis. There is a tiny (1 mm) stone at the right UPJ (series 2, image 69) resulting in minimal hydronephrosis and perinephric stranding. I do not see obstructive uropathy on the left. Stomach and bowel: There is diverticulosis without diverticulitis. Appendix: No evidence of appendicitis. No appendicolith. Intraperitoneal space: No free fluid, free air or focal inflammatory infiltration. Vasculature: No abdominal aortic aneurysm. The portal, splenic and superior mesenteric veins appear patent. Lymph nodes: No enlarged lymph nodes within the retroperitoneal space or mesentery. Urinary bladder: The urinary bladder wall is mildly thickened but this may be exaggerated by incomplete distention. Cystitis is not excluded in the appropriate clinical setting. Reproductive: The prostate gland is erno-ir-qaovbocyau enlarged and contains nonspecific calcifications. Bones/joints: Unremarkable. No acute fracture. No osteolytic or blastic bone lesions. Soft tissues: Paraspinous and extracorporeal soft tissues are unremarkable. IMPRESSION: 1. Subtle bilateral medullary nephrocalcinosis and punctate right sided nephrolithiasis. In addition, there is mild right-sided obstructive uropathy secondary to a tiny (1 mm) stone at the right UPJ. 2. Scattered diverticulosis but no evidence of diverticulitis. 3. Hepatic steatosis. 4. Mild to moderate prostatomegaly. 5. Mild urinary bladder wall thickening as detailed above. Thank you for allowing us to participate in the care of your patient. Dictated and Authenticated by: Jose Turner MD 11/22/2020 7:06 AM Eastern Time ([place] & [place]) FINDINGS: Lungs: The lungs are clear without consolidation. Pleural spaces: Unremarkable. No pleural effusion. No pneumothorax. Heart/Mediastinum: The cardiac silhouette, mediastinal contours and hilar shadows appear unremarkable. Bones/joints: Osseous structures grossly intact without acute findings. There is a grade 1 separation of the right AC joint.. IMPRESSION: No acute cardiopulmonary disease. Thank you for allowing us to participate in the care of your patient. Dictated and Authenticated by: Jose Turner MD 11/22/2020 7:07 AM Eastern Time ([place] & [place]) <Radha Jorge MD - Last Filed: 11/22/20 10:14> Patient signed out to me by Dr. Leon with lactate and reassessment pending. Repeat lactate after IV fluid is 0.6. On reassessment, patient reports that he has no symptoms, feels very well, and would like to go home. He denies having any pain. I had a lengthy discussion with patient regarding his increased LFTs. Patient reports that 3 days ago he took 1500 mg of Tylenol, and 2 days ago he took 1000 mg of Tylenol. He denies any other recent Tylenol usage other than using Percocet as prescribed. Patient's Tylenol use is not consistent with acute or chronic acetaminophen overdose resulting in liver injury. Patient reports that he frequently finds ticks on him as he spends a significant amount of time outdoors. He denies known engorged tick bite or rash. Unclear etiology of patient's reported fever, however with patient asymptomatic at this time, no leukocytosis, afebrile throughout the duration of his ED stay, no indication for admission at this point. Exam/history is not consistent with sepsis, meningitis, other acute life-threatening infection. Will send tick panel. Doubt hepatitis, however given patient's chronic steroid use and unclear source of reported fever will send hepatitis panel as well. I had a lengthy discussion with Patient regarding return to emergency department precautions, home care, and importance of outpatient follow-up. Pt verbalizes understanding of the plan and is amenable. Patient discharged to home with clear plan for outpatient follow-up. All questions were answered. Disposition decision was made weighing the risks and benefits of hospitalization versus outpatient treatment, the risk for further decompensation, and the patient's wishes. Medical Records Medical records reviewed: Yes I reviewed the patient's medical records. Lab Data Lab results reviewed: Yes I reviewed the patient's lab results. HPI <Randal Leon, - Last Filed: 11/22/20 07:39> General Date/Time Provider Initiated Documentation: 11/22/20 05:05. HPI Narrative: This is a 60-year-old male with past medical history of hypertension, high cholesterol, polymyalgia rheumatica, who presents today for evaluation of right flank pain. Patient was diagnosed with a kidney stone in his proximal right ureter in early October, and then on November 08 he had a recurrence of his pain, CAT scan at that time showed no significant movement of the stone albeit a small stone. Pain was controlled on an outpatient basis, follow-up with Dr. Bautista shortly thereafter continued to show no passage of the stone, however the patient's pain was controlled and so patient elected to wait until after his upcoming vacation to potentially have the stone removed. Unfortunately over the last 3 days the patient has had a notable recurrence of his pain, and most concerningly over the last 2 days he has had a recurrent fever with a T-max of 103-105. Temperature is been intermittently controlled with Tylenol and Motrin. He admits to notable chills and generalized aches everywhere. He denies chest pain or shortness of breath but does admit to a very mild cough. Unfortunately the patient is scheduled to leave for vacation in 3 days. Patient has no other complaints at this time. He denies any numbness tingling or weakness. He denies any vomiting or diarrhea. He does admit to dysuria. Pain radiates to the right groin but no testicular pain. Related Data Home Medications Medication Instructions Recorded Confirmed loratadine 10 mg PO PRN PRN 02/25/13 11/22/20 cholecalciferol (vitamin D3) 2,000 unit PO DAILY 07/07/15 11/22/20 alendronate 35 mg tablet 35 mg PO QWEEK 01/09/20 11/08/20 prednisone 1 mg tablet,delayed 2 mg PO DAILY tab 01/09/20 11/22/20 release amlodipine 10 mg tablet 10 mg PO DAILY #90 tab 09/28/20 11/22/20 atorvastatin 20 mg tablet 20 mg PO QHS #90 tab 05/25/21 07/05/21 oxycodone 5 mg tablet 5 mg PO BID PRN #4 tab MDD 10mg 10/06/20 11/22/20 Previous Rx's Medication Instructions Recorded amlodipine 10 mg tablet 10 mg PO DAILY #90 tab 09/28/20 atorvastatin 20 mg tablet 20 mg PO QHS #90 tab 09/28/20 oxycodone 5 mg tablet 5 mg PO BID PRN #4 tab MDD 10mg 10/06/20 Allergies Allergy/AdvReac Type Severity Reaction Status Date / Time sulfamethoxazole Allergy Unknown Rash Verified 11/22/20 05:12 hydrocodone bitartrate AdvReac Intermediate nausea/vomi Verified 11/22/20 05:12 [From Vicodin] ting hayfever AdvReac Mild Uncoded 11/22/20 05:12 General Stated Complaint: Abd Prob PHILLIP: 3 Review of Systems <Randal Leon DO - Last Filed: 11/22/20 07:39> All systems reviewed & are unremarkable except as noted in HPI and below PFSH <Randal Leon DO - Last Filed: 11/22/20 07:39> Medical History Carpal tunnel syndrome (06/30/13) N conduction: Bilat CTS Essential hypertension (08/03/15) HTN (hypertension) Hyperlipidemia Osteopenia (12/30/15) Plantar fasciitis of right foot (~12/2019) Partial tear PMR (polymyalgia rheumatica) Polymyalgia rheumatica (07/07/15) 07/15/20 [facility] Rheum Sensorineural hearing loss, bilateral (02/22/16) TAVAREZ Fitting 03/14/16 Spinal stenosis, cervical region (04/08/15) Surgical History Colonoscopy - IV Sedation (07/14/13) Hx of foot surgery Hx of hernia repair Hx of rotator cuff surgery Right Hx of tonsillectomy Family History Mother Asthma Diabetes Father Personal history of malignant neoplasm Brother Prostate cancer Social History Smoking/Tobacco Use Status: Former Tobacco Use Quit Date: 08/06/79 Tobacco: How many years used: 4 Second Hand Exposure: No Smoking risk assessment performed?: Yes Alcohol Intake: current Alcohol Intake frequency: 3 or more drinks per day Alcohol type: beer Drug use: Daily Substance use type: marijuana Caregiver/Support person: No Household members: spouse Housing: house Number of Children: 2 Communication Needs: Hard of Hearing Do you need help understanding health information?: Rarely 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 [employer] Pets and animals: No Sexually active: Yes Do you think of yourself as: straight/heterosexual Current gender identity: male What is your relationship status?: How often do you talk on the phone with friends or family?: twice per week How often do you get together with friends or relatives?: three or more times per week How often do you attend quaker or jainism services?: decline to answer Do you belong to any clubs or organized social groups?: no Panel score (0-1 are the most socially isolated patients): 2 NHANES result reviewed/action taken: Yes What type of physical activity do you participate in: walking Blanca/Mormonism: Mormonism Seatbelt use: sometimes Helmet use: Yes Helmet use: sometimes Drive intox or ride w/intox tilt tray driver: No Do you feel safe at home: Yes Do you feel safe in your relationship?: Yes Exam <Randal Leon DO - Last Filed: 11/22/20 07:39> Narrative Exam Narrative: 1.Const: Well-nourished, Well-developed, appearing stated age 2.Eyes: PERRL, no conjunctival injection, and symmetrical lids. 3.ENT: Atraumatic external nose and ears. Moist MM. Neck: Symmetric, trachea midline, No thyromegaly. 4.CVS: +S1/S2, No murmurs or gallops. Peripheral pulses 2+ and equal in all extremities. Brisk capillary refill in all extremities. 5.RESP: Unlabored respiratory effort. Clear to auscultation bilaterally. No wheezes rales or rhonchi 6.GI: Soft, Nontender/Nondistended, No hepatosplenomegaly. No guarding or rebound. No reproducible tenderness. Patient does have subjective tenderness in the right flank and right groin but this is not made worse with palpation. Genital exam demonstrates no genital tenderness, no testicular tenderness or signs of torsion. 7.MSK: Normocephalic/Atraumatic, Extremities w/o deformity or ttp No cyanosis or clubbing, Normal movement of all extremities 8.Skin: Warm, Dry. No rashes or lesions. 9.Neuro: plan examiner II-XII grossly intact. Sensation grossly intact, no focal neurologic deficits. 10.Psych: (AAO) x3. Appropriate mood and affect Course <Randal Leon DO - Last Filed: 11/22/20 07:39> Vital Signs Vital signs: Vital Signs Temperature 36.2 C L 11/22/20 05:08 Pulse 107 H 11/22/20 05:08 Respiratory Rate 24 11/22/20 05:08 Blood Pressure 143/69 H 11/22/20 05:08 Temperature 36.2 C L 11/22/20 05:08 Temperature Source Skin 11/22/20 05:08 Pulse 107 H 11/22/20 05:08 Respiratory Rate 24 11/22/20 05:08 Respiratory Effort 11/22/20 05:15 Blood Pressure 143/69 H 11/22/20 05:08 Pain Level 10 11/22/20 05:08 Lab/Test Results Lab/Test Results: 11/22/20 05:14 Blood Blood Culture - Pending 11/22/20 05:14 Blood Blood Culture - Pending Sign Out <Randal Leon DO - Last Filed: 11/22/20 07:39> Sign Out Data: Sign Out Comment: repeat lactate, after fluid bolus Last updated by Randal Leon DO at 11/22/20 07:40
[2020-11-22] MEDS: CEFEPIME 2 GM in Normal Saline 100 ML IVPB (05:30)
[2020-11-22 05:32] LABS: Abs Immature Grans 0.02 10^3/uL (0.0-0.06); Absolute Basophil Count 0.04 10^3/uL (0.0-0.2); Absolute Eosinophil Count 0.01 10^3/uL (0.0-0.7); Absolute Lymphocyte Count 0.48 10^3/uL (1.2-3.4); Absolute Monocyte Count 0.54 10^3/uL (0.1-0.8); Absolute Neutrophil Count 4.92 10^3/uL (1.2-6.7); Basophils % 0.7; Eosinophils % 0.2; HCT 39.3 % (40.0-50.0); HGB 13.9 g/dL (13.5-17.5); Immature Grans % 0.3; MCHC 35.4 % (32.0-36.0); MCV 84.9 fL (80-95); MPV 10.2 fL (8.0-11.0); Neutrophils % 81.8; Nucleated RBC 0 %; Platelet Count 161 10^3/uL (130-400); RBC 4.63 10^6/uL (4.36-5.78); RDW 12.6 % (11.8-14.1); RDW-SD 38.7 fL; WBC 6.01 10^3/uL (4.4-10.8)
[2020-11-22] MEDS: Ondansetron 4 MG/2 ML VIAL IVP (05:33)
[2020-11-22 05:34] LABS: Lactate 3.1 mmol/L (0.6-1.4)
[2020-11-22] MEDS: Normal Saline 1,000 ML 1000 ML IV (05:34)
[2020-11-22 05:46] LABS: ALT 97 U/L (16-63); AST 65 U/L (15-37); Albumin 3.3 g/dL (3.4-5.0); Alkaline Phosphatase 65 U/L (46-116); Anion Gap 10.9 mmol/L (3-11); BUN 7 mg/dL (7-18); Bilirubin, Total 0.7 mg/dL (0.2-1.0); CO2 23.1 mmol/L (21.0-32.0); CREATININE 0.9 mg/dL (0.70-1.30); Calcium 8.7 mg/dL (8.5-10.1); Chloride 99 mmol/L (98-107); Glucose 219 mg/dL (74-106); Potassium 3.8 mmol/L (3.5-5.1); Sodium 133 mmol/L (136-145)
[2020-11-22 05:59] VITALS: TEMP 37.7
[2020-11-22 06:06] LABS: Bilirubin Negative (Negative); Blood Trace-intact (Negative); Clarity Clear (Clear); Glucose Negative (Negative); Ketones Trace mg/dL (Negative); Leukocyte Esterase Negative (Negative); Nitrite Negative (Negative); pH 7.5 (5-8)
[2020-11-22 06:21] LABS: Bacteria Rare HPF (Negative); Crystals Negative HPF (Negative); Epithelial Cells Negative HPF (Negative); Other Cells Negative (Negative); WBC Negative HPF (0-5)
[2020-11-22 06:22] LABS: C & S Indicated? No; Casts Negative LPF (Negative); Mucus Trace (Negative)
[2020-11-22 06:30] LABS: COVID-19 PCR Negative (Negative)
[2020-11-22 07:06] VITALS: BP 136/67; PULSE 91; RESP 16; TEMP 36.6; O2SAT 93
--- NOTE | 2020-11-22 07:06 | DI.VRAD_ITS ---
PROCEDURE INFORMATION: Exam: CT Abdomen And Pelvis Without Contrast Exam date and time: 11/22/2020 5:19 AM Age: 60 years old Clinical indication: Abdominal pain and other: Flank; Patient HX: Known right sided stone, now febrile TECHNIQUE: Imaging protocol: Computed tomography of the abdomen and pelvis without contrast. Radiation optimization: All CT scans at this facility use at least one of these dose optimization techniques: automated exposure control; mA and/or kV adjustment per patient size (includes targeted exams where dose is matched to clinical indication); or iterative reconstruction. COMPARISON: CT RENAL COLIC WO 11/08/2020 10:46 AM FINDINGS: Lungs: Lung bases are clear. Liver: Diffuse hepatic steatosis. Gallbladder and bile ducts: Unremarkable without gallstones. No intra or extrahepatic ductal dilation. Pancreas: No peripancreatic inflammatory infiltration or fluid. No ductal dilation. Spleen: No splenomegaly or splenic mass. Adrenal glands: Normal. No mass. Kidneys and ureters: There is subtle bilateral medullary nephrocalcinosis and punctate right nephrolithiasis. There is a tiny (1 mm) stone at the right UPJ (series 2, image 69) resulting in minimal hydronephrosis and perinephric stranding. I do not see obstructive uropathy on the left. Stomach and bowel: There is diverticulosis without diverticulitis. Appendix: No evidence of appendicitis. No appendicolith. Intraperitoneal space: No free fluid, free air or focal inflammatory infiltration. Vasculature: No abdominal aortic aneurysm. The portal, splenic and superior mesenteric veins appear patent. Lymph nodes: No enlarged lymph nodes within the retroperitoneal space or mesentery. Urinary bladder: The urinary bladder wall is mildly thickened but this may be exaggerated by incomplete distention. Cystitis is not excluded in the appropriate clinical setting. Reproductive: The prostate gland is [id number] enlarged and contains nonspecific calcifications. Bones/joints: Unremarkable. No acute fracture. No osteolytic or blastic bone lesions. Soft tissues: Paraspinous and extracorporeal soft tissues are unremarkable. IMPRESSION: 1. Subtle bilateral medullary nephrocalcinosis and punctate right sided nephrolithiasis. In addition, there is mild right-sided obstructive uropathy secondary to a tiny (1 mm) stone at the right UPJ. 2. Scattered diverticulosis but no evidence of diverticulitis. 3. Hepatic steatosis. 4. Mild to moderate prostatomegaly. 5. Mild urinary bladder wall thickening as detailed above. Dictated and Authenticated by: Jose Turner MD. Ordering:JAMES Tee MD
--- NOTE | 2020-11-22 07:08 | DI.VRAD_ITS ---
PROCEDURE INFORMATION: Exam: XR Chest Exam date and time: 11/22/2020 5:16 AM Age: 60 years old Clinical indication: Fever TECHNIQUE: Imaging protocol: XR of the chest. Views: 2 views. COMPARISON: NM BONE SCAN WHOLE BODY GRP 10/20/2020 1:47 PM FINDINGS: Lungs: The lungs are clear without consolidation. Pleural spaces: Unremarkable. No pleural effusion. No pneumothorax. Heart/Mediastinum: The cardiac silhouette, mediastinal contours and hilar shadows appear unremarkable. Bones/joints: Osseous structures grossly intact without acute findings. There is a grade 1 separation of the right AC joint.. IMPRESSION: No acute cardiopulmonary disease. Dictated and Authenticated by: Jose Turner MD. Ordering:JAMES Tee MD
--- NOTE | 2020-11-22 07:35 | NUR.NOTE ---
Nursing Note: Referral faxed to [facility] for follow up this week per Dr. Bautista for kidney stone pain. Dr. Leon consulted with Dr. Bautista about this patient. Mary Ramos
[2020-11-22] MEDS: Normal Saline 500 ML 999 ML IV (07:40)
[2020-11-22 08:10] VITALS: TEMP 36.3
[2020-11-22 08:16] LABS: Lactate 0.6 mmol/L (0.6-1.4)
[2020-11-22 09:10] VITALS: BP 119/70; PULSE 93; TEMP 36.2; O2SAT 96
[2020-11-22 09:22] VITALS: BP 119/70; PULSE 93; RESP 16; TEMP 36.2; O2SAT 96
[2020-11-23 10:18] LABS: Lyme Ab w Rflx to Lyme Confirm Negative (Negative)
[2020-11-23 11:13] LABS: Hepatitis A Antibody IgM Negative (Negative); Hepatitis B Core Antibody Negative (Negative); Hepatitis B surface Ag Negative (Negative); Hepatitis C Ab w Rflx HCV PCR Negative (Negative)
[2020-11-23 21:48] LABS: Anaplasma phagocytophilum Negative (Negative); B. miyamotoi PCR Negative (Negative); Babesia divergens/MO-1 Negative (Negative); Babesia duncani Negative (Negative); Babesia microti Negative (Negative); Ehrlichia chaffeensis Negative (Negative); Ehrlichia ewingii/canis Negative (Negative); Ehrlichia muris eauclairensis Negative (Negative)
== END 2020-11-22 12:00 | disposition home or self-care (01) ==
PROVIDERS: Student in an Organized Health Care Education/Training Program; Emergency Provider Student in an Organized Health Care Education/Training Program; PCP Family Medicine
DX: R10.9 Unspecified abdominal pain (principal); R74.01 Elevation of levels of liver transaminase levels
CPT/HCPCS: 36415; 80053; 86704; 86709; 86803; 87040; 87340; 87635; 87798; 96361; 96365; 96366; 96375; 99284; 71046; 74176; 81003; 81015; 83605; 85025; 86618; J2405

== ENCOUNTER 2020-11-22 18:07 | Observation (INO) | payer OTHER, SELFPAY ==
[2020-11-22] VITALS (17 sets, daily range): BP systolic 115–140; BP diastolic 63–77; PULSE 68–100; RESP 11–22; TEMP 36–37.1; O2SAT 93–97
--- NOTE | 2020-11-22 18:22 | ED.GENADUL_ITS ---
Discharge Plan Disposition Condition: Improving Discharge Details Chief Complaint: Fever Admit Date/Time: 11/22/20 19:50 Admit Provider: Vasiliy Feliciano Attending Provider: Vasiliy Feliciano Primary Care Provider: Alexandru Faith ED Provider: Teresa Cordova Discharge Instructions Activity:: Activity as Tolerated Equipment/Supplies:: No Equipment Needed Diet:: As Tolerated Discharge Orders Discharge Orders: Discharge Order (Routine); Ordered 11/23/20 Ordered By: Jaylyn Davis Discharge Data Discharge Date/Time-TO BE ENTERED AT DEPARTURE: 11/22/20 20:32 Medical Decision Making Patient is a pleasant 60 year old male presenting today with c/c of right sided abdominal pain. Patient was seen here earlier today at which time he was diagnosed with a right sided kidney stone and transaminitis. Patient had known stone for which he has been followed by Dr. Bautista. Please see note from earlier today. He was discharged home after receiving IV hydrated. Initially, he had an elevated alctate which improved after hydration. Imaging obtained sounds to have had slightly different interrpretation between radiologists. Initial read punctate 1mm stone at [facility]. Further read interprets the stone as 2-3mm at [facility] with swelling of the collecting system proximal to the stone. Since being discharged, patient states that his pain has begun to increase again. He reports that pain was initially over the right CVA but has now migrated to mid right abdomen. Denies testicular pain. Denies hematuria. No change in BM. Has not seen a stone pass. States that shortly after arriving home earlier, he began to develop a fever. T max 103*F. PMH signficant for nephrolithiasis, HTN, polymyalgia rheumatica, hyperlipidemia. On exam, patient appears uncomfortable. He is afebrile, hemodynamically stable. No CVA tenderness at this time. Pain right mid abdomen. Reviewed results from earlier today. UA had been concerning for rare bacteria but no other evidence of infection. Will obtain urine culture, blood cultures. Consulted with Dr. Bautista. Recommended IV Ceftriaxone. Fluids, pain medications. He recommended NPO after midnight with plan for removal tomorrow. Discussed recommendations with the patient, he agrees with this plan. Consulted with Dr. Feliciano who agrees to admission with plan for patient to have surgical removal of stone tomorrow by Dr. Bautista. Repeat labs reviewed, WBC 9.4, lactate WNL. Patient has remained hemodynamically stable, afebrile. He had pain and nausea controlled with zofran, tylenol and morphine. HPI General Mode of arrival: ambulatory . Date/Time Provider Initiated Documentation: 11/22/20 18:09 . Limitations to Documentation: no limitations . Information obtained by: patient, family, RN notes reviewed and old records reviewed . History of Present Illness 60 year old M presents to the emergency department with the chief complaint of right sided abdominal pain, fever, described as moderate, Quality is described as aching, and is localized to the abdomen. Patient reports radiation to back. Patient started experiencing this day(s) and it has been constant. No relieving factors improve symptom(s), No exacerbating factors reported . Patient notes fever/chills, loss of appetite, malaise and nausea/vomiting; denies chest pain, cough, diaphoresis, rash and shortness of breath. Patient did receive the following treatments prior to arrival, other Related Data Home Medications Medication Instructions Recorded Confirmed loratadine 10 mg PO PRN PRN 02/25/13 11/25/20 cholecalciferol (vitamin D3) 2,000 unit PO DAILY 07/07/15 11/25/20 alendronate 35 mg tablet 35 mg PO QWEEK 01/09/20 11/25/20 prednisone 1 mg tablet,delayed 2 mg PO DAILY tab 01/09/20 11/25/20 release amlodipine 10 mg tablet 10 mg PO DAILY #90 tab 09/28/20 11/25/20 atorvastatin 20 mg tablet 20 mg PO QHS #90 tab 09/28/20 11/25/20 oxycodone 5 mg tablet 5 mg PO BID PRN #4 tab MDD 10mg 10/06/20 11/25/20 Previous Rx's Medication Instructions Recorded amlodipine 10 mg tablet 10 mg PO DAILY #90 tab 09/28/20 atorvastatin 20 mg tablet 20 mg PO QHS #90 tab 09/28/20 oxycodone 5 mg tablet 5 mg PO BID PRN #4 tab MDD 10mg 10/06/20 Allergies Allergy/AdvReac Type Severity Reaction Status Date / Time sulfamethoxazole Allergy Unknown Rash Verified 11/22/20 18:22 hydrocodone bitartrate AdvReac Intermediate nausea/vomi Verified 11/22/20 18:22 [From Vicodin] ting hayfever AdvReac Mild Uncoded 11/22/20 18:22 General Stated Complaint: Fever PHILLIP: 2 Review of Systems Constitutional Constitutional: Reports as per HPI, Reports chills, Reports fatigue, Reports fever(s), Reports lethargy and Reports poor appetite Cardiovascular Cardiovascular: Reports as per HPI, Denies chest pain and Denies dyspnea Respiratory Respiratory: Reports as per HPI, Denies cough and Denies dyspnea Gastrointestinal Gastrointestinal: Reports as per HPI and Reports abdominal pain Genitourinary Genitourinary: Reports as per HPI Musculoskeletal Musculoskeletal: Reports as per HPI Endocrine Endocrine: Reports fatigue [facility] Medical History Carpal tunnel syndrome (06/30/13) N conduction: Bilat CTS Essential hypertension (08/03/15) HTN (hypertension) Hyperlipidemia Osteopenia (12/30/15) Plantar fasciitis of right foot (~12/2019) Partial tear PMR (polymyalgia rheumatica) Polymyalgia rheumatica (07/07/15) 07/15/20 [facility] Rheum Sensorineural hearing loss, bilateral (02/22/16) TAVAREZ Fitting 03/14/16 Spinal stenosis, cervical region (04/08/15) Surgical History Colonoscopy - IV Sedation (07/14/13) Hx of foot surgery Hx of hernia repair Hx of rotator cuff surgery Right Hx of tonsillectomy Family History Mother Asthma Diabetes Father Personal history of malignant neoplasm Brother Prostate cancer Social History Smoking/Tobacco Use Status: Former Tobacco Use Quit Date: 08/06/79 Tobacco: How many years used: 4 Second Hand Exposure: No Smoking risk assessment performed?: Yes Alcohol Intake: current Alcohol Intake frequency: other (I probably drink an 18 pack over a weekend) Alcohol type: beer Drug use: Daily Substance use type: marijuana Caregiver/Support person: No Household members: spouse Housing: house Number of Children: 2 Communication Needs: Hard of Hearing Do you need help understanding health information?: Rarely 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 [employer] Pets and animals: No Sexually active: Yes Do you think of yourself as: straight/heterosexual Current gender identity: male What is your relationship status?: How often do you talk on the phone with friends or family?: twice per week How often do you get together with friends or relatives?: three or more times per week How often do you attend shinto or anabaptist services?: decline to answer Do you belong to any clubs or organized social groups?: no Panel score (0-1 are the most socially isolated patients): 2 NHANES result reviewed/action taken: Yes What type of physical activity do you participate in: walking Blanca/Mormonism: Yazidism Seatbelt use: sometimes Helmet use: Yes Helmet use: sometimes Drive intox or ride w/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: No Do you feel safe at home: Yes Do you feel safe in your relationship?: Yes Exam Const General: cooperative, healthy appearing, uncomfortable, no acute distress and well developed Nutritional Appearance: average body habitus and well nourished Orientation: alert and awake HENMT Mouth: moist mucous membranes Resp Effort & Inspection: normal respiratory effort and no respiratory distress Auscultation: clear to auscultation bilaterally, no rales, no rhonchi and no wheezes Cardio Rate: regular rate Rhythm: regular rhythm Heart Sounds: S1 normal and S2 normal GI Inspection: normal to inspection, no edema and non-distended Palpation: soft, no hepatosplenomegaly, no guarding, no hernias, no pulsatile masses and tender (right sided mid abdominal pain) not at McBurney's point and with no rebound tenderness Percussion: normal to percussion Auscultation: normal bowel sounds Back/Spine/Pelvis Back: no CVA tenderness Skin General skin exam: no rashes or lesions noted Neuro General: patient alert and patient awake Cognition: normal cognition Speech: speech normal Gait: normal gait Psych Appearance: grossly normal and well kempt Mental Status: mental status grossly normal Speech and Movement: speech and movement normal Course Vital Signs Vital signs: Vital Signs Temperature 37 C 11/22/20 18:16 Pulse 93 H 11/22/20 18:16 Respiratory Rate 22 11/22/20 18:16 Blood Pressure 127/71 11/22/20 18:16 Pulse Oximetry 97 11/22/20 18:16 Temperature 37 C 11/22/20 18:16 Temperature Source Oral 11/22/20 18:16 Pulse 93 H 11/22/20 18:16 Respiratory Rate 22 11/22/20 18:16 Respiratory Effort Non-Labored 11/22/20 18:19 Blood Pressure 127/71 11/22/20 18:16 Blood Pressure Position Sitting 11/22/20 18:16 Pulse Oximetry 97 11/22/20 18:16 Oxygen Delivery Method Room Air 11/22/20 18:16 Oxygen Flow Rate 0 11/22/20 18:16 Pain Level 5 11/22/20 18:16
[2020-11-22 18:45] LABS: Abs Immature Grans 0.04 10^3/uL (0.0-0.06); Absolute Basophil Count 0.03 10^3/uL (0.0-0.2); Absolute Lymphocyte Count 0.41 10^3/uL (1.2-3.4); Absolute Monocyte Count 0.57 10^3/uL (0.1-0.8); Basophils % 0.3; HCT 37.5 % (40.0-50.0); HGB 13.2 g/dL (13.5-17.5); Immature Grans % 0.4; Lactate 1.1 mmol/L (0.6-1.4); Lymphocytes % 4.3; MCH 30.1 pg (27.0-33.0); MCHC 35.2 % (32.0-36.0); MCV 85.6 fL (80-95); MPV 10.4 fL (8.0-11.0); Nucleated RBC 0 %; Platelet Count 164 10^3/uL (130-400); RBC 4.38 10^6/uL (4.36-5.78); RDW 12.5 % (11.8-14.1); RDW-SD 39.1 fL; WBC 9.46 10^3/uL (4.4-10.8)
[2020-11-22 18:46] LABS: Absolute Neutrophil Count 8.42 10^3/uL (1.2-6.7)
[2020-11-22 18:54] LABS: Anion Gap 8.8 mmol/L (3-11); BUN 6 mg/dL (7-18); CO2 26.2 mmol/L (21.0-32.0); CREATININE 0.8 mg/dL (0.70-1.30); Calcium 8.8 mg/dL (8.5-10.1); Chloride 99 mmol/L (98-107); Glucose 200 mg/dL (74-106); Potassium 3.6 mmol/L (3.5-5.1); Sodium 134 mmol/L (136-145)
[2020-11-22] MEDS: Normal Saline 1,000 ML 125 ML IV (19:09)
[2020-11-22] MEDS: Ondansetron 4 MG/2 ML VIAL IVP (19:13)
[2020-11-22] MEDS: cefTRIAXone 1 GM/50 ML BAG IVPB (19:18)
[2020-11-22] MEDS: ACETAMINOPHEN 1,000 MG/100 ML BTL 400 MG IVPB (19:21)
[2020-11-22 19:26] LABS: Bilirubin Small (Negative); Blood Negative (Negative); Clarity Clear (Clear); Glucose Negative (Negative); Ketones 80 mg/dL (Negative); Leukocyte Esterase Negative (Negative); Nitrite Negative (Negative); pH 8.5 (5-8)
[2020-11-22 19:31] LABS: Bacteria Negative HPF (Negative); C & S Indicated? C&S Done As Ordered; Crystals Negative HPF (Negative); Epithelial Cells Negative HPF (Negative); Mucus Heavy (Negative); WBC Negative HPF (0-5)
--- NOTE | 2020-11-22 19:32 | W.PM.HP.N ---
Date of service: 11/22/20 Time of Service: 19:32 Assessment and Plan Assessment and plan (1) Right flank pain: Status: Acute Assessment and plan: Kidney stone. It is clear enough this will not pass spontaneously at this point and will plan on surgical removal in AM. What is less clear is source of fever (or even if there is a fever given questions about home readings). If true fever, source may well be urine, though in that case absence of pyuria would suggest infection behind obstructing stone. However this may be coincidental and may have alternate source of fever. The TAVAREZ with dental pain would be c/w sinusitis. I advise CT but declines due to recent radiation. I advise then that current abx would be good coverage for any putative sinusitis so foregoing CT not unreasonable. History of Present Illness History of Present Illness Chief Complaint: abd pain Narrative: 60 male with h/o right sided 2-3 mm kidney stone since October, sxx have been intermittent and it has been elected to continue expectant management. Her in ER early this AM due to report of once again increasing pain and repot of fever to 103-105 over past few days, though it has been reported that there is some question about the validity of these readings. Received dose Cefepime, and CT shows stable appearance of stone (this per final read, initial read references a smaller sized stone). Note also absence of pyuria. Returns this evening with flare of pain and again feeling feverish, with home temps reported 101+. Here in ER findings of note for absence of fever and leukocytosis. consulted and advises Rocephin and plan stone removal in AM. Has received APAP, MS, Zofran and 1 gr Rocephin. Patient states that otherwise he has noted a left sided temporal TAVAREZ over past few days along with left upper tooth pain. Note h/o PMR, has been on ultra slow Prednisone taper, currently 2 mg for past 6 months. Review of Systems All systems reviewed & are unremarkable except as noted in HPI and below PFSH Medical History Carpal tunnel syndrome (06/30/13) N conduction: Bilat CTS Essential hypertension (08/03/15) HTN (hypertension) Hyperlipidemia Osteopenia (12/30/15) Plantar fasciitis of right foot (~12/2019) Partial tear PMR (polymyalgia rheumatica) Polymyalgia rheumatica (07/07/15) 07/15/20 [facility] [place] Rheum Sensorineural hearing loss, bilateral (02/22/16) TAVAREZ Fitting 03/14/16 Spinal stenosis, cervical region (04/08/15) Surgical History Colonoscopy - IV Sedation (07/14/13) Hx of foot surgery Hx of hernia repair Hx of rotator cuff surgery Right Hx of tonsillectomy Family History Mother Asthma Diabetes Father Personal history of malignant neoplasm Brother Prostate cancer Social History Smoking/Tobacco Use Status: Former Tobacco Use Quit Date: 08/06/79 Tobacco: How many years used: 4 Second Hand Exposure: No Smoking risk assessment performed?: Yes Alcohol Intake: current Alcohol Intake frequency: 3 or more drinks per day Alcohol type: beer Drug use: Daily Substance use type: marijuana Caregiver/Support person: No Household members: spouse Housing: house Number of Children: 2 Communication Needs: Hard of Hearing Do you need help understanding health information?: Rarely 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 [employer] Pets and animals: No Sexually active: Yes Do you think of yourself as: straight/heterosexual Current gender identity: male What is your relationship status?: How often do you talk on the phone with friends or family?: twice per week How often do you get together with friends or relatives?: three or more times per week How often do you attend jain or yarsanism services?: decline to answer Do you belong to any clubs or organized social groups?: no Panel score (0-1 are the most socially isolated patients): 2 NHANES result reviewed/action taken: Yes What type of physical activity do you participate in: walking Blanca/Rastafari: Sikhism Seatbelt use: sometimes Helmet use: Yes Helmet use: sometimes Drive intox or ride w/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: No Do you feel safe at home: Yes Do you feel safe in your relationship?: Yes Meds Allergies and Home Medications Allergies Allergy/AdvReac Type Severity Reaction Status Date / Time sulfamethoxazole Allergy Unknown Rash Verified 11/22/20 18:22 hydrocodone bitartrate AdvReac Intermediate nausea/vomi Verified 11/22/20 18:22 [From Vicodin] ting hayfever AdvReac Mild Uncoded 11/22/20 18:22 Home Medications Medication Instructions Recorded Confirmed Type loratadine 10 mg PO PRN PRN 02/25/13 11/22/20 History cholecalciferol (vitamin D3) 2,000 unit PO DAILY 07/07/15 11/22/20 History alendronate 35 mg tablet 35 mg PO QWEEK 01/09/20 11/22/20 History prednisone 1 mg tablet,delayed 2 mg PO DAILY tab 01/09/20 11/22/20 History release amlodipine 10 mg tablet 10 mg PO DAILY #90 tab 09/28/20 11/22/20 Rx atorvastatin 20 mg tablet 20 mg PO QHS #90 tab 09/28/20 11/22/20 Rx oxycodone 5 mg tablet 5 mg PO BID PRN #4 tab MDD 10mg 10/06/20 11/22/20 Rx Exam Narrative Exam Narrative: 127/71, 93, 37.1, 22, 97% RA. HEENT neg temporal artery tenderness; neck supple; lungs clear; heart RRR; neg CVAT; abdomen mild RLQ tenderness w/o rebound; extremities w/o edema, neuro Ox3, lucid, moves all 4s Results Labs Result diagrams: 11/22/20 18:35 11/22/20 18:35 Labs: Laboratory Results - last 24 hr 11/22/20 11/22/20 11/22/20 18:35 18:35 18:35 WBC 9.46 D RBC 4.38 Hgb 13.2 L Hct 37.5 L MCV 85.6 MCH 30.1 MCHC 35.2 RDW 12.5 Plt Count 164 MPV 10.4 Immature Gran % 0.4 Neutrophils % 89.0 Lymphocytes % 4.3 Monocytes % 6.0 Eosinophils % 0.0 Basophils % 0.3 Nucleated RBC % 0 Absolute Neutrophils 8.42 H Absolute Lymphocytes 0.41 L Absolute Monocytes 0.57 Absolute Eosinophils 0.00 Absolute Basophils 0.03 VBG Lactate 1.1 Sodium 134 L Potassium 3.6 Chloride 99 Carbon Dioxide 26.2 Anion Gap 8.8 BUN 6 L Creatinine 0.8 Estimated GFR/1.73 m2 >= 60.00 Glucose 200 H Calcium 8.8 Urine Color Urine Clarity Urine pH Ur Specific [place] Urine Protein Urine Ketones Urine Blood Urine Nitrite Urine Bilirubin Urine Urobilinogen Ur Leukocyte Esterase Urine RBC Urine WBC Ur Epithelial Cells Urine Crystals Urine Bacteria Urine Mucus Ur Culture Indicated? Urine Glucose 11/22/20 19:05 WBC RBC Hgb Hct MCV MCH MCHC RDW Plt Count MPV Immature Gran % Neutrophils % Lymphocytes % Monocytes % Eosinophils % Basophils % Nucleated RBC % Absolute Neutrophils Absolute Lymphocytes Absolute Monocytes Absolute Eosinophils Absolute Basophils VBG Lactate Sodium Potassium Chloride Carbon Dioxide Anion Gap BUN Creatinine Estimated GFR/1.73 m2 Glucose Calcium Urine Color [place] Urine Clarity Clear Urine pH 8.5 H Ur Specific [place] 1.020 Urine Protein 100 H Urine Ketones 80 H Urine Blood Negative Urine Nitrite Negative Urine Bilirubin Small H Urine Urobilinogen 2.0 H Ur Leukocyte Esterase Negative Urine RBC 3-5 H Urine WBC Negative Ur Epithelial Cells Negative Urine Crystals Negative Urine Bacteria Negative Urine Mucus Heavy Ur Culture Indicated? C&S Done As Ordered Urine Glucose Negative Last Vital Signs Temp 37.1 C 11/22/20 19:21 Pulse 93 H 11/22/20 18:16 Resp 22 11/22/20 18:16 BP 127/71 11/22/20 18:16 Pulse Ox 97 11/22/20 18:16
[2020-11-22] MEDS: Normal Saline 1,000 ML 150 ML IV (22:06)
[2020-11-23] VITALS (7 sets, daily range): BP systolic 109–114; BP diastolic 61–75; PULSE 64–78; RESP 14–21; TEMP 36–36.2; O2SAT 95–99; BMI 28.9
[2020-11-23] MEDS: Normal Saline 1,000 ML 150 ML IV (03:30)
[2020-11-23] MEDS: MORPHine 4 MG/ML SYR IVP ×2 (03:49→08:11)
--- NOTE | 2020-11-23 07:52 | UCONE_ITS ---
Date of service: 11/23/20 Time of Service: 07:52 Assessment and Plan Assessment and plan (1) Ureterolithiasis: Status: Acute Assessment and plan: As mentioned in my office note of 11/11/2020, we would expect the stone of this size to pass with conservative management. This clearly has not been the case in over a month of monitoring, so we will move forward with ureteroscopy and possible stone manipulation. If I am unable to access the stone due to edema or stricture in the ureter, I will be prepared to place a ureteral stent to relieve any obstruction. History of Present Illness History of Present Illness Chief Complaint: Right ureteral stone Narrative: 60-year-old gentleman who is previously known from having a large right renal stone. He was treated with ureteroscopy and holmium laser lithotripsy. We did that initial in a staged procedure. His initial stone an alysis showed 2% calcium oxalate monohydrate, 30% calcium phosphate and 20% calcium oxalate dihydrate. He was seen in the office about 10 days ago. At that time, he was found to have a right proximal ureteral stone that was quite small but was not progressing on serial imaging studies. He had an upcoming vacation, and he elected not to move forward with surgery immediately. Unfortunately, he has had multiple emergency room presentations in the last day with persistent flank pain, fevers and nausea. After his second emergency room visit, we elected to keep him in the hospital for pain control and we have kept him n.p.o. after midnight to consider stone treatment. As of this morning, his pain is well controlled with medication. He is not having any current fevers or chills. He has no nausea or vomiting. He does complain of a severe headache. Review of Systems Narrative: Fevers at home. Severe headache this morning No vision change or dysphasia No diabetes or thyroid dysfunction No shortness of breath, cough or hemoptysis No chest pain or palpitations No ulcers, jaundice No seizures, strokes or peripheral neuropathy No bleeding disorders or anemia Polymyalgia Rheumatica. No gout [facility] Medical History Carpal tunnel syndrome (06/30/13) N conduction: Bilat CTS Essential hypertension (08/03/15) HTN (hypertension) Hyperlipidemia Osteopenia (12/30/15) Plantar fasciitis of right foot (~12/2019) Partial tear PMR (polymyalgia rheumatica) Polymyalgia rheumatica (07/07/15) 07/15/20 [facility] [place] Rheum Sensorineural hearing loss, bilateral (02/22/16) TAVAREZ Fitting 03/14/16 Spinal stenosis, cervical region (04/08/15) Surgical History Colonoscopy - IV Sedation (07/14/13) Hx of foot surgery Hx of hernia repair Hx of rotator cuff surgery Right Hx of tonsillectomy Family History Mother Asthma Diabetes Father Personal history of malignant neoplasm Brother Prostate cancer Social History Smoking/Tobacco Use Status: Former Tobacco Use Quit Date: 08/06/79 Tobacco: How many years used: 4 Second Hand Exposure: No Smoking risk assessment performed?: Yes Alcohol Intake: current Alcohol Intake frequency: 3 or more drinks per day Alcohol type: beer Drug use: Daily Substance use type: marijuana Caregiver/Support person: No Household members: spouse Housing: house Number of Children: 2 Communication Needs: Hard of Hearing Do you need help understanding health information?: Rarely 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 [employer] Pets and animals: No Sexually active: Yes Do you think of yourself as: straight/heterosexual Current gender identity: male What is your relationship status?: How often do you talk on the phone with friends or family?: twice per week How often do you get together with friends or relatives?: three or more times per week How often do you attend mormonism or denominational services?: decline to answer Do you belong to any clubs or organized social groups?: no Panel score (0-1 are the most socially isolated patients): 2 NHANES result reviewed/action taken: Yes What type of physical activity do you participate in: walking Blanca/Anglican: Uatsdin Seatbelt use: sometimes Helmet use: Yes Helmet use: sometimes Drive intox or ride w/intox 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: No Do you feel safe at home: Yes Do you feel safe in your relationship?: Yes Exam Const General: cooperative Orientation: alert, awake and oriented x3 Neck Neck: supple Resp Effort & Inspection: normal respiratory effort GI Palpation: soft, no guarding and no masses Neuro General: patient alert, patient awake and patient oriented x3 Results Last Vital Signs Temp 36.0 C L 11/23/20 07:22 Pulse 64 11/23/20 07:22 Resp 16 11/23/20 07:22 BP 114/75 11/23/20 07:22 Pulse Ox 98 11/23/20 07:22 Labs Result diagrams: 11/22/20 18:35 11/22/20 18:35 Labs: Laboratory Results - last 24 hr 11/22/20 11/22/20 11/22/20 18:35 18:35 18:35 WBC 9.46 D RBC 4.38 Hgb 13.2 L Hct 37.5 L MCV 85.6 MCH 30.1 MCHC 35.2 RDW 12.5 Plt Count 164 MPV 10.4 Immature Gran % 0.4 Neutrophils % 89.0 Lymphocytes % 4.3 Monocytes % 6.0 Eosinophils % 0.0 Basophils % 0.3 Nucleated RBC % 0 Absolute Neutrophils 8.42 H Absolute Lymphocytes 0.41 L Absolute Monocytes 0.57 Absolute Eosinophils 0.00 Absolute Basophils 0.03 VBG Lactate 1.1 Sodium 134 L Potassium 3.6 Chloride 99 Carbon Dioxide 26.2 Anion Gap 8.8 BUN 6 L Creatinine 0.8 Estimated GFR/1.73 m2 >= 60.00 Glucose 200 H Calcium 8.8 Urine Color Urine Clarity Urine pH Ur Specific [place] Urine Protein Urine Ketones Urine Blood Urine Nitrite Urine Bilirubin Urine Urobilinogen Ur Leukocyte Esterase Urine RBC Urine WBC Ur Epithelial Cells Urine Crystals Urine Bacteria Urine Mucus Ur Culture Indicated? Urine Glucose 11/22/20 19:05 WBC RBC Hgb Hct MCV MCH MCHC RDW Plt Count MPV Immature Gran % Neutrophils % Lymphocytes % Monocytes % Eosinophils % Basophils % Nucleated RBC % Absolute Neutrophils Absolute Lymphocytes Absolute Monocytes Absolute Eosinophils Absolute Basophils VBG Lactate Sodium Potassium Chloride Carbon Dioxide Anion Gap BUN Creatinine Estimated GFR/1.73 m2 Glucose Calcium Urine Color [place] Urine Clarity Clear Urine pH 8.5 H Ur Specific [place] 1.020 Urine Protein 100 H Urine Ketones 80 H Urine Blood Negative Urine Nitrite Negative Urine Bilirubin Small H Urine Urobilinogen 2.0 H Ur Leukocyte Esterase Negative Urine RBC 3-5 H Urine WBC Negative Ur Epithelial Cells Negative Urine Crystals Negative Urine Bacteria Negative Urine Mucus Heavy Ur Culture Indicated? C&S Done As Ordered Urine Glucose Negative
[2020-11-23] MEDS: predniSONE 1 MG TAB 2 MG PO (08:11)
[2020-11-23] MEDS: amLODIPine 10 MG TAB PO (08:11)
--- NOTE | 2020-11-23 09:16 | ANES.PREOP_ITS ---
General Info Date of Service Date Performed: 11/23/20 Height: 5 ft 7 in Weight: 83.8 kg Body Mass Index (BMI): 28.9 Surgical Procedure: Operation Date: 11/23/20 10:25 Proposed Procedures Side Surgeon p CYSTO, RT RETROGRADE, RT FLEX URETEROSCOPY, POSSIBLE HOLMIUM LASER, POSSIBLE STENT Right Philip Bautista MD Meds Allergies and Home Medications Allergies Allergy/AdvReac Type Severity Reaction Status Date / Time sulfamethoxazole Allergy Unknown Rash Verified 11/22/20 18:22 hydrocodone bitartrate AdvReac Intermediate nausea/vomi Verified 11/22/20 18:22 [From Vicodin] ting hayfever AdvReac Mild Uncoded 11/22/20 18:22 Home Medication Medication Instructions Recorded loratadine 10 mg PO PRN PRN 02/25/13 cholecalciferol (vitamin D3) 2,000 unit PO DAILY 07/07/15 alendronate 35 mg tablet 35 mg PO QWEEK 01/09/20 prednisone 1 mg tablet,delayed 2 mg PO DAILY tab 01/09/20 release amlodipine 10 mg tablet 10 mg PO DAILY #90 tab 09/28/20 atorvastatin 20 mg tablet 20 mg PO QHS #90 tab 09/28/20 oxycodone 5 mg tablet 5 mg PO BID PRN #4 tab MDD 10mg 10/06/20 Current Visit Medications: Current Medications Generic Name Dose Route Start Last Admin Trade Name Freq PRN Reason Stop Dose Admin Amlodipine Besylate 10 mg 11/23/20 08:30 11/23/20 08:11 Amlodipine 10 Mg Tab PO 10 mg DAILY SOPHIA Administration Dimethicone/Zinc Oxide 0 gm 11/22/20 19:50 Rey Protect Cream 142 Gm Tube TP PRN PRN Ceftriaxone Sodium/Dextrose 1 gm in 50 mls @ 100 mls/hr 11/23/20 18:00 Rocephin IVPB Q24H SOPHIA Sodium Chloride 1,000 mls @ 150 mls/hr 11/22/20 22:00 11/23/20 03:30 Saline 1000ml Bag IV 150 mls/hr INFUSION SOPHIA Administration IV Miscellaneous Supplies 1 each 11/22/20 18:30 Iv Access IV DIRECTED SOPHIA Morphine Sulfate 4 mg 11/23/20 03:45 11/23/20 08:11 Morphine 4 Mg/Ml Syr IVP 4 mg Q2H PRN PRN Administration Ondansetron HCl 4 mg 11/22/20 19:52 Ondansetron 4 Mg/2 Ml Vial IVP Q4H PRN PRN Prednisone 2 mg 11/23/20 08:30 11/23/20 08:11 Prednisone 1 Mg Tab PO 2 mg DAILY SOPHIA Administration Sodium Chloride 0 ml 11/22/20 18:25 Normal Saline Flush 10 Ml Syr IVP PRN PRN Zolpidem Tartrate 5 mg 11/22/20 19:52 Zolpidem 5 Mg Tab PO HS PRN MAY REPEAT X1 PRN PFSH Active Problems Active Problems: Problem Status Onset Code Right flank pain R10.9 Transaminitis R74.01 Ureterolithiasis N20.1 Abnormal CAT scan R93.89 Enlarged prostate N40.0 Left flank pain R10.9 Pelvic pain R10.2 Hyperlipidemia E78.5 Osteoarthritis involving multiple joints on both sides of body ~07/2020 M15.9 Lichen planus L43.9 Plantar fasciitis of right foot ~12/2019 M72.2 longterm (current) use of systemic steroids Z79.52 Kidney stone on right side N20.0 Carpal tunnel syndrome 06/30/13 G56.00 Essential hypertension 08/03/15 I10 Osteopenia 12/30/15 M85.80 Polymyalgia rheumatica 07/07/15 M35.3 Sensorineural hearing loss, bilateral 02/22/16 H90.3 Spinal stenosis, cervical region 04/08/15 M48.02 Medical History Medical History Carpal tunnel syndrome (06/30/13) N conduction: Bilat CTS Essential hypertension (08/03/15) HTN (hypertension) Hyperlipidemia Osteopenia (12/30/15) Plantar fasciitis of right foot (~12/2019) Partial tear PMR (polymyalgia rheumatica) Polymyalgia rheumatica (07/07/15) 07/15/20 OV [facility] Rheum Sensorineural hearing loss, bilateral (02/22/16) TAVAREZ Fitting 03/14/16 Spinal stenosis, cervical region (04/08/15) Surgical History Surgical History Colonoscopy - IV Sedation (07/14/13) Hx of foot surgery Hx of hernia repair Hx of rotator cuff surgery Right Hx of tonsillectomy Tobacco Smoking/Tobacco Use Status: Former Tobacco Use Tobacco: How many years used: 4 Passive smoking exposure: No Second hand exposure: No Alcohol Alcohol Intake: current Alcohol intake frequency: other (I probably drink an 18 pack over a weekend) Alcohol type: beer Substance Use Substance use: Daily Substance use type: marijuana Vital Signs and Lab Results Vital Signs Most Recent Vital Signs in EMR: Most Recent Vital Signs Temp Pulse Resp BP Pulse Ox 36.0 C L 64 16 114/75 98 11/23/20 07:22 11/23/20 07:22 11/23/20 07:22 11/23/20 07:22 11/23/20 07:22 Lab Results Result Diagrams: 11/22/20 18:35 11/22/20 18:35 Blood Type / Crossmatch: No Data to Display Complete Blood Count: White Blood Count 9.46 10^3/uL (4.4-10.8) 11/22/20 18:35 11/22/20 Red Blood Count 4.38 10^6/uL (4.36-5.78) 11/22/20 18:35 11/22/20 Hemoglobin 13.2 g/dL (13.5-17.5) L 11/22/20 18:35 11/22/20 Hematocrit 37.5 % (40.0-50.0) L 11/22/20 18:35 11/22/20 Platelet Count 164 10^3/uL (130-400) 11/22/20 18:35 11/22/20 Venous Blood Lactate 1.1 mmol/L (0.6-1.4) 11/22/20 18:35 11/22/20 Complete Metabolic Panel: Sodium Level 134 mmol/L (136-145) L 11/22/20 18:35 11/22/20 Potassium Level 3.6 mmol/L (3.5-5.1) 11/22/20 18:35 11/22/20 Chloride Level 99 mmol/L (98-107) 11/22/20 18:35 11/22/20 Carbon Dioxide Level 26.2 mmol/L (21.0-32.0) 11/22/20 18:35 11/22/20 Blood Urea Nitrogen 6 mg/dL (7-18) L 11/22/20 18:35 11/22/20 Creatinine 0.8 mg/dL (0.70-1.30) 11/22/20 18:35 11/22/20 Estimated GFR/1.73 m2 >= 60.00 (mL/min/1.73m2) 11/22/20 18:35 11/22/20 Calcium Level 8.8 mg/dL (8.5-10.1) 11/22/20 18:35 11/22/20 Albumin 3.3 g/dL (3.4-5.0) L 11/22/20 05:25 11/22/20 Glucose Level 200 mg/dL (74-106) H 11/22/20 18:35 11/22/20 Liver Function Panel: Alanine Aminotransferase (ALT/SGPT) 97 U/L (16-63) H 11/22/20 05:25 11/22/20 Aspartate Amino Transf (AST/SGOT) 65 U/L (15-37) H 11/22/20 05:25 11/22/20 Coagulation Panel: No Data to Display Cardiac Panel: No Data to Display Arterial Blood Gas: No Data to Display Venous Blood Gas: No Data to Display Pancreas Panel: No Data to Display Thyroid Panel: No Data to Display Infectious Disease: Coronavirus (COVID-19)(PCR) Negative (Negative) 11/22/20 05:30 11/22/20 Coronavirus 2019 Source NASOPHARYX 11/22/20 05:30 11/22/20 Blood Cultures: No Data to Display Toxicology Panel: No Data to Display Anesthesia Assessment and Plan Anesthesia History Personal History: No History of Anesthesia Complications Family History: No Family History of Anesthesia Complications Exercise Tolerance Exercise Tolerance: Metabolic Equivalents>4 Pertinent Negatives Pertinent Negatives: No Symptoms of GERD, No Major Cardiovascular Symptoms or Complaints, No Major Pulmonary Symptoms or Complaints and No History of CVA/TIA Cardiac & Pulmonary Exam Cardiac Exam: Normal S1/S2 Heart Sounds Pulmonary Exam: Clear Bilateral Breath Sounds Airway Exam Known Difficult Airway: No Mallampati Class: 1 Mouth Opening: Normal (> 3cm) Thyromental Distance: Greater than 3 cm Neck Range of Motion: Full ROM Neck Circumference: Normal Teeth Condition: Normal Dentition Airway Comments: Top front teeth chipped ASA Classification ASA Score: ASA 2 Emergency Case?: No NPO Status NPO Status: NPO Clears >2 hours, Solids >8 hours Anesthesia Plan Resuscitation Status: Full Code Anesthesia Technique: General Anesthesia Airway Planned: LMA Monitors Used: Standard Monitors
[2020-11-23] MEDS: Lactated Ringers 1,000 ML 100 ML IV (10:10)
--- NOTE | 2020-11-23 11:09 | DI.RAD_ITS ---
Exam(s) XR RETROGRADE IN OR EXAM: XR RETROGRADE IN OR CLINICAL HISTORY: Right kidney stone. TECHNIQUE: 2D and realtime digital imaging was performed. FINDINGS: Fluoroscopy was utilized by Dr. Bautista during the retrograde evaluation of the renal collecting system . Images show placement of a right ureteral stent. Please refer to the procedure report for complet e details. Fluoro time 37.9 seconds RADIATION DOSE DELIVERED: Ka,r=12.76 mGy
--- NOTE | 2020-11-23 11:11 | ROE_ITS ---
Date of service: 11/23/20 Time of Service: 11:11 Operative Note Operative Note DATE OF PROCEDURE: 11/23/20 PRE-OP DIAGNOSIS: Right ureteral stone POST-OP DIAGNOSIS: other Right ureteral stricture PROCEDURE: Cystoscopy, right retrograde pyelogram, right flexible ureteroscopy, right ureteral dilation, insert right ureteral stent SURGEON: Philip Bautista ANESTHESIA TYPE: Local By Surgeon and General LMA/ETT Refer to Anesthesia Record ESTIMATED BLOOD LOSS: 5 PATHOLOGY: none sent COMPLICATIONS: None Patient was transported to: PACU Patient's condition: stable Implants: 4.8 [place] by 22 to 30 cm right ureteral stent Indications: This is a 60-year-old gentleman with a past history of a large right kidney stone. He was treated with ureteroscopic laser lithotripsy approximately 2 years ago. The initial stone was treated in a staged procedure. He has had intermittent right flank pain with microscopic hematuria. His CT scanning demonstrated a 3 mm right proximal ureteral stone that had not progressed on repeated imaging. As his symptoms worsened, he was admitted to the hospital for pain control. He presents now for stone manipulation. Findings: Mild stricture in right proximal ureter Procedure Description: The patient was brought to the operating room on 11/23/2020. He was given IV antibiotics. After successful induction of general anesthesia, he was placed in the dorsal lithotomy position. His genitalia was prepped and draped. 2% Xylocaine jelly was instilled into the urethra to act as a local anesthetic. A 22 [place] rigid cystoscope was passed through the urethra into the bladder. The urethra and bladder were inspected with a 30 degree lens. The pendulous, bulbar and membranous urethra was all appeared normal with no strictures. The prostatic urethra showed some lateral lobe enlargement but no significant median lobe. The bladder neck was entered and the bladder mucosa was inspected. Both ureteral orifices appeared normal. No blood was seen coming from either side. The remainder of the bladder showed no papillary or nodular lesions. We then cannulated the right ureteral orifice with a 6 [place] access catheter. Retrograde pyelogram was obtained by injecting Omnipaque through the access catheter under fluoroscopic guidance. No filling defects were seen, but there was a narrowed area in the right proximal ureter just below the ureteropelvic junction. This area did not peristalsis. I then passed a guidewire through the access catheter and maneuvered the wire up to the upper pole calyx. I removed the cystoscope leaving the wire in place. I then passed a dual-lumen catheter over the wire and positioned a second wire up the ureter. We chose one of the wires as a working wire and the other as a safety wire. I then passed a ureteral access sheath over the working wire leaving the safety wire in place. I passed the flexible ureteroscope through the access sheath and maneuvered it to the upper ureter. The narrowing was visualized but I was able to dilate the narrowed portion of the ureter with my ureteroscope. I then inspected each of the calyces in the renal pelvis and found no significant stone burden. I believe his discomfort is related more to the strictured area in the ureter, so I dilated the area further with a passport ureteral balloon. The dilation was performed with both fluoroscopy and direct visualization through the ureteroscope. After the area was dilated for 5 minutes, we removed the balloon. I was able to pass the ureteroscope through the area with no difficulty. We then placed a 4.8 variable length stent over the safety wire. We positioned the proximal and in the upper pole calyx in the distal and within the bladder. The safety string was left in place and brought through the patient's urethra. The safety string was coiled and taped onto the dorsum of the penis using a Steri-Strip. He tolerated this procedure well with no complications. I would expect that we can safely remove the stent in 48 to 72 hours.
--- NOTE | 2020-11-23 11:51 | W.ANESPOSTOP ---
Postoperative Evaluation Date, Time and Location Date Performed: 11/23/20 Time Performed: 11:52 Patient Location: PACU Vital Signs Most Recent Imported Vital Signs: Most Recent Vital Signs Temp Pulse Resp BP Pulse Ox 36.2 C L 78 16 109/73 99 11/23/20 11:28 11/23/20 11:28 11/23/20 11:28 11/23/20 11:28 11/23/20 11:28 Pain Score Most Recent Pain Score: Most Recent Pain Score Pain Level 1 11/23/20 11:23 Assessment Mental Status: Awake (Alert & Oriented to Patient Baseline) Airway and Respiratory Function: Patent airway with normal (patient baseline) respiratory exam Cardiovascular Function: Hemodynamically Stable Hydration Status: Adequately Hydrated Nausea & Vomiting: No Nausea or Vomiting Pain: Pt. Denies Any Pain Peripheral Nerve Block: Patient did not receive a nerve block
--- NOTE | 2020-11-23 14:36 | DSE_ITS ---
Date of service: 11/23/20 Time of Service: 14:37 DS: Diagnosis Discharge Diagnosis (1) Ureterolithiasis: Status: Acute Discharge Plan Disposition Patient Disposition: HOME Condition: Improving Discharge Details Reason For Visit: Kidney Stone Admit Date/Time: 11/22/20 19:50 Admit Provider: Vasiliy Feliciano Attending Provider: Vasiliy Feliciano Primary Care Provider: Alexandru Faith Hospital Course Hospital Course: This is a 60 year old male with history of large right renal stone, previously treated with ureteroscopy and holmium laser lithotripsy, now found to have a right proximal ureteral stone which was being treated outpatient by Dr Tellez, which was not progressing on serial imaging studies. He unfortunately had multiple emergency room presentations with persistent flank pain, fevers and nausea. After his second emergency room visit, he elected to stay in the hospital for pain control and possible surgical intervention. he remained stable overnight with pain managed. in the am Dr tellez took him to the OR for stone removal, stent placement and ureteral stricture dilation. He tolerated procedure well and is stable for discharge to home. plan is to follow up outpatient with Dr tellez in 2 days. discharge discussed with Dr Vega. Home Meds and New Rx's Prescriptions: Continued amlodipine 10 mg tablet 10 mg PO DAILY Qty: 90 RF: 3 atorvastatin 20 mg tablet 20 mg PO QHS Qty: 90 RF: 3 oxycodone 5 mg tablet 5 mg PO BID MDD 10mg PRN (Reason: pain) Qty: 4 RF: 0 cholecalciferol (vitamin D3) 2,000 UNIT tablet 2,000 unit PO DAILY RF: 0 prednisone 1 mg tablet,delayed release (DR/EC) 2 mg PO DAILY RF: 0 alendronate 35 mg tablet 35 mg PO QWEEK RF: 0 loratadine 10 MG tablet 10 mg PO PRN PRNRF: 0 Discharge Instructions Instructions: Ureteroscopy (DC) Stand Alone Forms: Nursing Discharge Form Referrals: Alexandru Faith DO [Primary Care Provider] - 12/03/20 10:45 am Philip Tellez MD [ [facility] STAFF PHYSICIAN] - (as scheduled in 2 days) Activity:: Activity as Tolerated Equipment/Supplies:: No Equipment Needed Diet:: As Tolerated Discharge Orders Discharge Orders: Discharge Order (Routine); Ordered 11/23/20 Ordered By: Jaylyn Davis DS: Summary Time Spent with Patient providing and/or coordinating discharge services: Less than 30 minutes Status at Discharge Functional status at discharge: independent ambulation Overall status at discharge: patient is progressing back to baseline Mental Status: mental status grossly normal Speech and Movement: speech and movement normal Mood: congruent mood Affect: normal affect Exam Const General: cooperative Orientation: alert, awake and oriented x3 Neck Neck: supple Resp Effort & Inspection: normal respiratory effort GI Palpation: soft, no guarding and no masses Neuro General: patient alert, patient awake and patient oriented x3 Psych Mental Status: mental status grossly normal Speech and Movement: speech and movement normal Mood: congruent mood Affect: normal affect DS: Data Vitals/I&O Vitals and I&O: Vital Signs Temperature 36.1 C L 11/23/20 12:10 Temperature Source Tympanic 11/23/20 07:22 Pulse 78 11/23/20 12:10 Pulse Rhythm Regular 11/23/20 08:30 Pulse 79 11/22/20 20:01 Respiratory Rate 17 11/23/20 12:10 Respiratory Effort Non-Labored 11/23/20 08:30 Respiratory Depth Normal 11/23/20 08:30 Respiratory Pattern Normal 11/23/20 08:30 Blood Pressure 112/66 11/23/20 12:10 Blood Pressure Mean 76 11/22/20 20:01 Blood Pressure Position Sitting 11/22/20 18:16 Pulse Oximetry 95 11/23/20 12:10 Respiratory End-tidal CO2 35 11/23/20 12:10 Oxygen Delivery Method Room Air 11/23/20 12:10 Oxygen Flow Rate 8 11/23/20 11:50 Pain Level 1 11/23/20 12:10 Intake & Output 11/22/20 11/23/20 11/23/20 23:59 11:59 23:59 Intake Total 516.25 / 516.25 19190 290 / 2210 Balance 516.25 / 516.25 1919 290 / 2210 Weight 83.8 kg 83.8 kg Intake: IV 516.25 / 516.25 1919 / 1919 Oral 290 / 290 Other: Urine Color Pale Yellow Urine Appearance Clear Clear Urine Odor Normal Comment unable to measure voiding independently Emesis Description None None Voiding Methods Toilet Toilet Data Completed and Pending Labs on day of discharge: Labs from last 24 hours 0711/22/20 11/22/20 19:05 18:35 18:35 WBC 9.46 D RBC 4.38 Hgb 13.2 L Hct 37.5 L MCV 85.6 MCH 30.1 MCHC 35.2 RDW 12.5 Plt Count 164 MPV 10.4 Immature Gran % 0.4 Neutrophils % 89.0 Lymphocytes % 4.3 Monocytes % 6.0 Eosinophils % 0.0 Basophils % 0.3 Nucleated RBC % 0 Absolute Neutrophils 8.42 H Absolute Lymphocytes 0.41 L Absolute Monocytes 0.57 Absolute Eosinophils 0.00 Absolute Basophils 0.03 VBG Lactate 1.1 Sodium Potassium Chloride Carbon Dioxide Anion Gap BUN Creatinine Estimated GFR/1.73 m2 Glucose Calcium Urine Color Gianna Urine Clarity Clear Urine pH 8.5 H Ur Specific [place] 1.020 Urine Protein 100 H Urine Ketones 80 H Urine Blood Negative Urine Nitrite Negative Urine Bilirubin Small H Urine Urobilinogen 2.0 H Ur Leukocyte Esterase Negative Urine RBC 3-5 H Urine WBC Negative Ur Epithelial Cells Negative Urine Crystals Negative Urine Bacteria Negative Urine Mucus Heavy Ur Culture Indicated? C&S Done As Ordered Urine Glucose Negative 11/22/20 18:35 WBC RBC Hgb Hct MCV MCH MCHC RDW Plt Count MPV Immature Gran % Neutrophils % Lymphocytes % Monocytes % Eosinophils % Basophils % Nucleated RBC % Absolute Neutrophils Absolute Lymphocytes Absolute Monocytes Absolute Eosinophils Absolute Basophils VBG Lactate Sodium 134 L Potassium 3.6 Chloride 99 Carbon Dioxide 26.2 Anion Gap 8.8 BUN 6 L Creatinine 0.8 Estimated GFR/1.73 m2 >= 60.00 Glucose 200 H Calcium 8.8 Urine Color Urine Clarity Urine pH Ur Specific [place] Urine Protein Urine Ketones Urine Blood Urine Nitrite Urine Bilirubin Urine Urobilinogen Ur Leukocyte Esterase Urine RBC Urine WBC Ur Epithelial Cells Urine Crystals Urine Bacteria Urine Mucus Ur Culture Indicated? Urine Glucose 11/22/20 19:02 Blood Blood Culture - Pending 11/22/20 18:35 Blood Blood Culture - Pending Preliminary micro results at discharge 11/22/20 19:05 Urine Culture - Preliminary Urine - Clean Catch 11/22/20 19:02 Blood Culture - Pending Blood 11/22/20 18:35 Blood Culture - Pending Blood [facility] Medical History Carpal tunnel syndrome (06/30/13) N conduction: Bilat CTS Essential hypertension (08/03/15) HTN (hypertension) Hyperlipidemia Osteopenia (12/30/15) Plantar fasciitis of right foot (~12/2019) Partial tear PMR (polymyalgia rheumatica) Polymyalgia rheumatica (07/07/15) 07/15/20 OV [facility] [place] Rheum Sensorineural hearing loss, bilateral (02/22/16) TAVAREZ Fitting 03/14/16 Spinal stenosis, cervical region (04/08/15) Surgical History Colonoscopy - IV Sedation (07/14/13) Hx of foot surgery Hx of hernia repair Hx of rotator cuff surgery Right Hx of tonsillectomy Family History Mother Asthma Diabetes Father Personal history of malignant neoplasm Brother Prostate cancer Social History Smoking/Tobacco Use Status: Former Tobacco Use Quit Date: 08/06/79 Tobacco: How many years used: 4 Second Hand Exposure: No Smoking risk assessment performed?: Yes Alcohol Intake: current Alcohol Intake frequency: other (I probably drink an 18 pack over a weekend) Alcohol type: beer Drug use: Daily Substance use type: marijuana Caregiver/Support person: No Household members: spouse Housing: house Number of Children: 2 Communication Needs: Hard of Hearing Do you need help understanding health information?: Rarely 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 [employer] Pets and animals: No Sexually active: Yes Do you think of yourself as: straight/heterosexual Current gender identity: male What is your relationship status?: How often do you talk on the phone with friends or family?: twice per week How often do you get together with friends or relatives?: three or more times per week How often do you attend nondenominational or anglican services?: decline to answer Do you belong to any clubs or organized social groups?: no Panel score (0-1 are the most socially isolated patients): 2 NHANES result reviewed/action taken: Yes What type of physical activity do you participate in: walking Blanca/Jew: Gnosticism Seatbelt use: sometimes Helmet use: Yes Helmet use: sometimes Drive 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
== END 2020-11-23 15:13 | disposition home or self-care (01) ==
LOC: ER 20:06 → MS 11-23 05:22
PROVIDERS: Urology; Admitting Provider General Practice; Emergency Provider Physician Assistant; PCP Family Medicine; Visit Provider General Practice
PROC: (CPT 52344; principal; 2020-11-23 10:15)
DX: N20.1 Calculus of ureter (principal); I10 Essential (primary) hypertension; E78.5 Hyperlipidemia, unspecified; M35.3 Polymyalgia rheumatica; H90.3 Sensorineural hearing loss, bilateral
CPT/HCPCS: 52344; 52332; 36410; 36415; 80048; 87040; 96365; 96375; 99285; 74420; 81003; 81015; 83605; 85025; 87086; 99217; 99219; 99284; G0378; J0131; J0696; J1720; J1885; J2001; J2270; J2405; J2704

== ENCOUNTER 2021-01-14 03:30 | Outpatient (CLI) | payer OTHER, SELFPAY ==
[2021-01-14 16:02] LABS: ESR 4 mm/hr (0-20)
[2021-01-14 16:31] LABS: C-Reactive Protein 0.48 mg/dL (0.0-0.3)
[2021-01-14 16:32] LABS: Uric Acid 6.7 mg/dL (3.5-7.2)
== END 2021-01-14 03:31 | disposition home or self-care (01) ==
LOC: LBO 03:30
PROVIDERS: Internal Medicine Rheumatology; PCP Family Medicine; Visit Provider Family Medicine
DX: M35.3 Polymyalgia rheumatica (principal); M25.461 Effusion, right knee; M25.462 Effusion, left knee
CPT/HCPCS: 36415; 85652; 84550; 86140

== ENCOUNTER 2021-01-14 04:12 | Outpatient (CLI) | payer OTHER, SELFPAY ==
--- NOTE | 2021-01-14 12:00 | DI.RAD_ITS ---
Exam(s) XR KNEE RT 3V AP,LAT,JUHI EXAM: XR KNEE RT 3V AP,LAT,JUHI CLINICAL HISTORY: Chronic b/l knee pain, rt knee effusiohn, M25.461. TECHNIQUE: 2D digital imaging was performed. COMPARISON: No exams were available for comparison FINDINGS: BONES: No acute fracture is present. No bony destructive lesion is seen. JOINTS: There is severe narrowing of the medial femoral tibial joint space, with a [id number] appea pastora. There is some flattening of the medial femoral condyle. There is periarticular spurring and sclerosis and as well as varus angulation. There is some lateral subluxation of the tibia with respe ct to the distal femur. Spurring is also noted at the tibial spines, femoral intercondylar notch, la teral femoral condyle and lateral tibial plateau.. A joint effusion is seen. SOFT TISSUE: Soft tissue swelling anterior to the patellar tendon. 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 DATA REPOSITORY: RADIATION DOSE DELIVERED:
--- NOTE | 2021-01-14 12:00 | DI.RAD_ITS ---
Exam(s) XR KNEE LT 3V AP,LAT,JUHI EXAM: XR KNEE LT 3V AP,LAT,JUHI CLINICAL HISTORY: Chronic b/l knee pain, left knee effusion, M25.462. TECHNIQUE: 2D digital imaging was performed. COMPARISON: CR XR KNEE RT 3V AP,LAT,JUHI from 01/14/2021 FINDINGS: BONES: No acute fracture is present. No bony destructive lesion is seen. JOINTS: The knee is normally aligned. No joint effusion is seen however the lateral view is somewhat rotated.. Mild narrowing of the medial femoral tibial joint space. Mild spurring at the medial femo ral condyle and articular aspect of the patella. SOFT TISSUE: Soft tissue swelling anterior to the patellar tendon. IMPRESSION: Mild degenerative changes. anterior soft tissue swelling. DATA REPOSITORY: RADIATION DOSE DELIVERED:
== END 2021-01-14 04:32 ==
PROVIDERS: PCP Family Medicine; Visit Provider Family Medicine
DX: M25.462 Effusion, left knee (principal); M25.461 Effusion, right knee; M25.561 Pain in right knee; M25.562 Pain in left knee; M17.0 Bilateral primary osteoarthritis of knee
CPT/HCPCS: 73562

== ENCOUNTER 2021-05-30 03:42 | Outpatient (CLI) | payer OTHER, SELFPAY ==
[2021-05-30 15:22] LABS: ESR 4 mm/hr (0-20)
[2021-05-30 15:59] LABS: C-Reactive Protein 0.97 mg/dL (0.0-0.3)
== END 2021-05-30 03:43 | disposition home or self-care (01) ==
LOC: LBO 03:42
PROVIDERS: PCP Family Medicine; Visit Provider Internal Medicine Rheumatology
DX: M35.3 Polymyalgia rheumatica (principal)
CPT/HCPCS: 36415; 85652; 86140

== ENCOUNTER 2021-08-24 06:13 | Day surgery (SDC) | payer OTHER, SELFPAY ==
[2021-08-24 06:15] VITALS: BP 135/89; PULSE 85; RESP 18; TEMP 36.6; O2SAT 98
--- NOTE | 2021-08-24 06:34 | PDOC.DSDIS_ITS ---
Discharge Plan Disposition Patient Disposition: HOME Condition: Good Discharge Details Reason For Visit: Left Middle and ring finger Trigger Finger Release Attending Provider: Dwayne Zuniga Primary Care Provider: Alexandru Faith Home Meds and New Rx's Prescriptions: New ibuprofen 600 mg tablet 600 mg PO TID Qty: 30 0RF acetaminophen 500 mg capsule 1,000 mg PO Q8H PRN PRNQty: 30 0RF Continued amlodipine 10 mg tablet 10 mg PO DAILY Qty: 90 3RF cholecalciferol (vitamin D3) 2,000 UNIT tablet 2,000 unit PO DAILY 0RF Rx Instructions: Dr Choe-[facility] [place] alendronate 35 mg tablet 35 mg PO QWEEK 0RF Rx Instructions: per note dated 01/08/20 [facility] [place] rheumatology repeat DEXA 2020 [facility] prednisone 1 mg tablet,delayed release (DR/EC) 1 mg PO DAILY 0RF Rx Instructions: Taper q4-6 wks by .5 mg, note dated 01/08/20 [facility] 1 mg per 04/11/21 [facility] [place] Rheumatology note loratadine 10 MG tablet 10 mg PO PRN PRN0RF Discharge Instructions Stand Alone Forms: Efrain Hamlin Finger Release Activity:: Activity as Tolerated Remove Dressings/Wound Care:: 72 hours Shower/Bathe:: 72 hours Diet:: As Tolerated Discharge Orders Discharge Orders: Discharge Order (Routine); Ordered 08/24/21 Ordered By: Anyi Cali DS: Diagnosis Discharge Diagnosis (1) Trigger finger, left middle finger: Status: Acute (2) Trigger finger, left ring finger: Status: Acute
[2021-08-24] MEDS: Sodium Bicarbonate 50 MEQ/50 ML VIAL (07:30)
--- NOTE | 2021-08-24 20:17 | ROE_ITS ---
Date of service: 08/24/21 Time of Service: 07:40 Operative Note Operative Note DATE OF PROCEDURE: 08/24/21 PRE-OP DIAGNOSIS: Left Middle and Ring Finger Trigger Fingers POST-OP DIAGNOSIS: same PROCEDURE: Trigger Finger Release - Left Middle and Ring Finger SURGEON: Dwayne Zuniga ANESTHESIA TYPE: Local By Surgeon Refer to Anesthesia Record ESTIMATED BLOOD LOSS: 0 PATHOLOGY: none sent COMPLICATIONS: None Patient was transported to: same day Patient's condition: stable Indications: I have seen Hudson in clinic for symptoms of a trigger finger. The catching, clicking, locking, and pain limited function. The diagnosis of trigger finger was evident. The symptoms had not responded to conservative measures. I discussed trigger finger release with the patient. I reviewed the risks of the procedure to include, but not limited to, bleeding, infection, pain, stiffness, incomplete release, damage to nerves or vessels, continued catching, recurrence. Despite these risks, the patient elected to proceed. Findings: There was a tightened A1 bria which was released. The flexor tendons were inspected and the patient was able to move the finger without any catching, clicking, or locking. Procedure Description: Hudson was greeted in the preoperative holding area where the correct side was identified and marked. The consent was reviewed with the patient and signed. All questions were answered. He was taken back to the operating room. The patient was placed into the supine position on the operating room table with the left arm on an arm board. All bony prominences were well padded. No prophylactic antibiotics were administered since this was a clean, elective hand surgical case. The left arm was then prepped with Chloraprep and draped in a standard fashion with stockinette and extremity drape. A timeout to confirm correct identity, side and site, procedure, allergies, anesthesia, and medical concerns was performed. The surgical site was marked as a longitudinal incision directly over the A1 bria of the two fingerst. This was confirmed with palpation during finger flexion. This area, overlying the metacarpal head, was then anesthetized with 1% Lidocaine with Epinephrine and buffered with Sodium Bicarbonate. The patient tolerated this well and once the anesthetic had setup, the procedure began. Starting with the middle finger, a longitudinal incision was made through skin only, approximately 1cm. The deep tissues were dissected bluntly. Once the A1 bria and flexor tendons were identified the soft tissue including neurovascular structures were retracted medially and laterally. There were no crossing structures over the A1 bria. The proximal edge of the bria was identified and the bria was incised with tenotomy scissors. There was a release of the tendons once this was fully released. The tendons were then removed from the wound and inspected. Excess synovium was resected. The tendons were then returned. Attention was then turned to the ring finger. A longitudinal incision was made through skin only, approximately 1cm. The deep tissues were dissected bluntly. Once the A1 bria and flexor tendons were identified the soft tissue including neurovascular structures were retracted medially and laterally. There were no crossing structures over the A1 bria. The proximal edge of the bria was identified and the bria was incised with tenotomy scissors. There was a re lease of the tendons once this was fully released. The tendons were then removed from the wound and inspected. Excess synovium was resected. Ray was asked to move the fingers into deep flexion and back to extension. There was no recreation of the pre-operative symptoms. The hand was then once more inspected for any A0 bria or area of possible constriction. The wound was then irrigated and the skin was closed with a 4-0 Nylon. This was dressed with gauze and a Conform dressing. The patient tolerated the procedure well and was returned to the Same Day Surgery area in a stable condition suffering no known complication.
== END 2021-08-24 07:57 | disposition home or self-care (01) ==
PROVIDERS: PCP Family Medicine; Visit Provider Student in an Organized Health Care Education/Training Program
PROC: (CPT 26055; principal; 2021-08-24 07:30)
DX: M65.332 Trigger finger, left middle finger (principal); M65.342 Trigger finger, left ring finger
CPT/HCPCS: 26055 ×2

== ENCOUNTER → 2022-01-18 00:43 | Outpatient (CLI) | payer OTHER, SELFPAY ==
--- NOTE | 2022-01-18 15:23 | DI.RAD_ITS ---
Exam(s) XR ARTHRITIS SERIES EXAM: XR ARTHRITIS SERIES CLINICAL HISTORY: POLYMYALGIA ARTHRITIS M35.3 STEROID USE Z79.52 OSTEOPENIA M85.80 ARTHRALGIA. TECHNIQUE: 2D digital imaging was performed. COMPARISON: No exams were available for comparison FINDINGS: Two views of both hands-AP and [place] views: No fractures or subluxations evident. No osseous lesions nor erosions. The metacarpophalangeal join ts appear unremarkable as do the interphalangeal joints with the exception of tiny calcific densities adjacent to the medial aspects of the DIP joints of both 2nd-index fingers. Also similar finding of f the medial aspect of the DIP joint of the 4th-ring finger of the left hand. Visualized carpal row bones appear unremarkable occluding the 1st carpometacarpal joints. No signifi cant ulnar variance on either side. No erosions of the ulnar styloids. IMPRESSION: Mild bilateral findings as described above. DATA REPOSITORY: RADIATION DOSE DELIVERED:
== END ==
PROVIDERS: PCP Family Medicine; Visit Provider Internal Medicine Rheumatology
DX: M35.3 Polymyalgia rheumatica (principal); M85.80 Other specified disorders of bone density and structure, unspecified site; Z79.52 Long term (current) use of systemic steroids; M25.841 Other specified joint disorders, right hand; M25.842 Other specified joint disorders, left hand; M25.541 Pain in joints of right hand; M25.542 Pain in joints of left hand
CPT/HCPCS: 73120

== ENCOUNTER 2022-01-18 01:43 | Outpatient (CLI) | payer OTHER, SELFPAY ==
[2022-01-18 16:21] LABS: Abs Immature Grans 0.01 10^3/uL (0.0-0.06); Absolute Basophil Count 0.09 10^3/uL (0.0-0.2); Absolute Eosinophil Count 0.28 10^3/uL (0.0-0.7); Absolute Lymphocyte Count 1.89 10^3/uL (1.2-3.4); Absolute Monocyte Count 0.61 10^3/uL (0.1-0.8); Absolute Neutrophil Count 4.09 10^3/uL (1.2-6.7); Basophils % 1.3; HCT 41.1 % (40.0-50.0); HGB 14.5 g/dL (13.5-17.5); Immature Grans % 0.1; Lymphocytes % 27.1; MCH 29.8 pg (27.0-33.0); MCHC 35.3 % (32.0-36.0); MCV 84 fL (80-95); MPV 10.4 fL (8.0-11.0); Monocytes % 8.8; Neutrophils % 58.7; Platelet Count 270 10^3/uL (130-400); RBC 4.87 10^6/uL (4.36-5.78); RDW-SD 40.2 fL; WBC 6.97 10^3/uL (4.4-10.8)
[2022-01-18 16:27] LABS: ALT 48 U/L (16-63); AST 26 U/L (15-37); Albumin 3.9 g/dL (3.4-5.0); Alkaline Phosphatase 58 U/L (46-116); Anion Gap 9.9 mmol/L (3-11); BUN 15 mg/dL (7-18); Bilirubin, Total 0.5 mg/dL (0.2-1.0); CO2 27.1 mmol/L (21.0-32.0); CREATININE 0.8 mg/dL (0.70-1.30); Chloride 104 mmol/L (98-107); Estimated GFR 100.69 (mL/min/1.73m2); Glucose 99 mg/dL (74-106); Potassium 3.7 mmol/L (3.5-5.1); Sodium 141 mmol/L (136-145); Total Protein 7.4 g/dL (6.4-8.2)
[2022-01-18 16:43] LABS: Uric Acid 6.6 mg/dL (3.5-7.2)
[2022-01-18 16:45] LABS: ESR 6 mm/hr (0-20)
[2022-01-19 18:01] LABS: Rheumatoid Factor <8.6 IU/mL (<12.0)
[2022-01-20 09:48] LABS: Cyclic Citrullinated Peptide <2.5 U/mL (<5.0)
== END 2022-01-18 01:44 | disposition home or self-care (01) ==
LOC: LBO 01:44
PROVIDERS: PCP Family Medicine; Visit Provider Internal Medicine Rheumatology
DX: M35.3 Polymyalgia rheumatica (principal); M85.80 Other specified disorders of bone density and structure, unspecified site; M25.541 Pain in joints of right hand; M25.542 Pain in joints of left hand; Z79.52 Long term (current) use of systemic steroids
CPT/HCPCS: 36415; 80053; 85652; 86200; 84550; 85025; 86140; 86431

== ENCOUNTER 2022-08-11 02:16 | Outpatient (CLI) | payer OTHER, SELFPAY ==
[2022-08-11 07:22] LABS: Abs Immature Grans 0.01 10^3/uL (0.0-0.06); Absolute Basophil Count 0.08 10^3/uL (0.0-0.2); Absolute Eosinophil Count 0.46 10^3/uL (0.0-0.7); Absolute Monocyte Count 0.66 10^3/uL (0.1-0.8); Absolute Neutrophil Count 3.19 10^3/uL (1.2-6.7); Basophils % 1.3; Eosinophils % 7.3; HCT 44.4 % (40.0-50.0); HGB 15.5 g/dL (13.5-17.5); Immature Grans % 0.2; Lymphocytes % 30.2; MCHC 34.9 % (32.0-36.0); MCV 86 fL (80-95); MPV 10.4 fL (8.0-11.0); Monocytes % 10.5; Neutrophils % 50.5; Platelet Count 239 10^3/uL (130-400); RBC 5.16 10^6/uL (4.36-5.78); RDW 12.9 % (11.8-14.1); RDW-SD 40.7 fL
[2022-08-11 07:27] LABS: ESR 4 mm/hr (0-20)
[2022-08-11 07:45] LABS: Hemoglobin A1C 5.9 % (<5.7)
[2022-08-11 08:04] LABS: Calculated LDL 111 mg/dL (<100); Cholesterol 198 mg/dL (<200); HDL Cholesterol 70 mg/dL (40-60); Triglyceride 85 mg/dL (<150)
[2022-08-11 08:12] LABS: C-Reactive Protein 0.69 mg/dL (0.0-0.3)
== END 2022-08-11 02:17 | disposition home or self-care (01) ==
PROVIDERS: PCP Family Medicine; Visit Provider Internal Medicine Rheumatology
DX: M35.3 Polymyalgia rheumatica (principal); M85.80 Other specified disorders of bone density and structure, unspecified site; Z79.52 Long term (current) use of systemic steroids
CPT/HCPCS: 36415; 80061; 85652; 83036; 85025; 86140

== ENCOUNTER 2022-08-17 00:36 | Outpatient (CLI) | payer OTHER, SELFPAY ==
--- NOTE | 2022-08-17 15:30 | DI.DEXA_ITS ---
Exam(s) XR DEXA BONE DENSITY W/WO CONRAD EXAM: XR DEXA BONE DENSITY W/WO CONRAD CLINICAL HISTORY: OSTEOPENIA ON PREDNISONE, NO FAMILY H/O FX, GRANDMOTHER HAD OSTEOPOROSIS TECHNIQUE: Hologic Horizon C densitometer analysis of left hip, lumbar spine and left forearm. Lat eral survey image of the thoracic and lumbar spine. COMPARISON: CR XR DEXA BONE DENSITY W/WO CONRAD from 08/04/2020, 2015, 2019 FINDINGS: Lateral view of the thoracic and lumbar spine shows no evidence of compression fractures. Bone mineral density measurements of the lumbar spine correspond to a total T-score of 0.6, in the n ormal range. This is not significantly changed from 2020 but represents a 4.3 percent increase apolinar red with 2016. Bone mineral density measurements of the left hip correspond to a total T-score of -0.1 . The femora l neck T-score is -1.5, in the osteopenic range. This is not significantly changed from priors.. The left forearm bone mineral density measurements correspond to a T-score of the distal 3rd of 0.6, in the normal range. This represents a 3.3 percent decrease from 2020 and a 5 percent decrease from 2016.. IMPRESSION: Normal bone mineral density of the lumbar spine and left forearm. Mild osteopenia of the left hip.
== END 2022-08-17 00:56 ==
LOC: DI 00:36
PROVIDERS: PCP Family Medicine; Visit Provider Internal Medicine Rheumatology
DX: M85.80 Other specified disorders of bone density and structure, unspecified site (principal)
CPT/HCPCS: 77080

== ENCOUNTER 2022-10-04 01:47 | Outpatient (CLI) | payer OTHER, SELFPAY ==
--- NOTE | 2022-10-04 07:30 | DI.CT_ITS ---
Exam(s) CT PELVIC W EXAM: CT PELVIC W CLINICAL HISTORY: ? femoral or obturator hernia,K46.9. TECHNIQUE: Imaging Protocol: Axial computed tomography images with coronal and sagittal reformatted images were created and reviewed. CONTRAST MATERIAL: Oral: yes / Intravenous: Omnipaque 350 Contrast volume:100 mL contrast route:IV - COMPARISON: CT CT RENAL COLIC WO from 11/22/2020 FINDINGS: Bladder: Symmetric distention, no gross wall thickening. Bowel: No obstruction or bowel wall thickening. Appendix normal. Peritoneal cavity: No ascites, collection or mesenteric inflammatory response. Bones: No fracture. Bone island right sacrum. Degenerative changes of the facet joints in the lowe r lumbar spine. Mild degenerative disc changes. Reproductive: Prostate slightly enlarged. Soft tissues: Tiny amount of fat at the umbilicus. No evidence of inguinal, femoral or obturator h ernia. IMPRESSION: No evidence of femoral or obturator hernia. RADIATION DOSE DELIVERED: 475.57mGy.cmTotal DLP 475.57mGy.cm Total DLP DATA REPOSITORY: All CT scans at this facility are submitted to the National Radiology Data Registry (NRDR) Dose Index Registry (DIR) with the [employer] ([employer]). RADIATION OPTIMIZATION: All CT scans at this facility use at least one of these dose optimization te chniques: automated exposure control; mA and/or kV adjustment per patient size (includes targeted exa ms where dose is matched to clinical indication); or iterative reconstruction.
[2022-10-04] MEDS: Barium Sulfate 2% W/V-Berry Smoothie 450 ML BTL PO ×2 (08:09→08:10)
[2022-10-04 08:25] LABS: CREATININE 0.9 mg/dL (0.70-1.30); Estimated GFR 97.17 (mL/min/1.73m2)
[2022-10-04] MEDS: Normal Saline - Diluent 50 ML VIAL IJ (10:00)
[2022-10-04] MEDS: Omnipaque 350 MG/ML 100 ML BTL IJ (10:01)
== END 2022-10-04 02:07 ==
LOC: DI 01:47
PROVIDERS: PCP Family Medicine; Visit Provider Surgery
DX: K46.9 Unspecified abdominal hernia without obstruction or gangrene (principal)
CPT/HCPCS: 72193; 82565; J3490

== ENCOUNTER 2022-10-16 15:19 | Outpatient (CLI) | payer OTHER, SELFPAY ==
--- NOTE | 2022-10-16 15:55 | DI.RAD_ITS ---
Exam(s) XR KNEE RT 3V AP,LAT,JUHI EXAM: XR KNEE RT 3V AP,LAT,JUHI CLINICAL HISTORY: Right knee pain. TECHNIQUE: 2D digital imaging was performed. COMPARISON: CR XR KNEE RT 3V AP,LAT,JUHI from 01/14/2021 CR XR KNEE LT 3V AP,LAT,JUHI from 01/14/2021 FINDINGS: 3 views Weight-bearing view reveals ohad-eo-dwuk narrowing of the medial compartment and marginal osteophyte off the medial compartment, similar to previous. Lateral compartment continues to exhibit normal hei ght. No obvious joint effusion. IMPRESSION: Tujk-yd-psts narrowing of the medial compartment again noted. DATA REPOSITORY: RADIATION DOSE DELIVERED:
== END 2022-10-16 15:20 | disposition home or self-care (01) ==
LOC: DIORS 15:20
PROVIDERS: PCP Family Medicine; Referring Provider Family Medicine; Visit Provider Physician Assistant
DX: M25.861 Other specified joint disorders, right knee (principal)
CPT/HCPCS: 73562

== ENCOUNTER 2022-11-20 15:31 | Outpatient (CLI) | payer OTHER, SELFPAY ==
--- NOTE | 2022-11-20 15:15 | DI.RAD_ITS ---
Exam(s) XR STANDING ALIGNMENT XR KNEE RT 1V EXAM: XR STANDING ALIGNMENT CLINICAL HISTORY: OA R KNEE. TECHNIQUE: 2D digital imaging was performed. Standing AP views were performed from the pelvis throu gh the ankles. Lateral view of the knee COMPARISON: CR XR KNEE RT 1V from 11/20/2022 FINDINGS: BONES: No acute fracture is present. No bony destructive lesion is seen. Leg length discrepancy: JOINTS: Knees: Joint effusion. Severe degenerative changes medial femoral tibial joint. Mild degene rative changes of the left knee. The ankle joints are unremarkable. The hip joints are unremarkable. SOFT TISSUE: Normal. IMPRESSION: Severe degenerative changes medial femoral tibial joint space of the right knee.. No significant leg length discrepancy. DATA REPOSITORY: RADIATION DOSE DELIVERED:
== END 2022-11-20 15:32 | disposition home or self-care (01) ==
LOC: DIORS 15:32
PROVIDERS: PCP Family Medicine; Visit Provider Student in an Organized Health Care Education/Training Program
DX: M17.11 Unilateral primary osteoarthritis, right knee (principal)
CPT/HCPCS: 73560; 77073

== ENCOUNTER 2023-01-04 03:27 | Outpatient (CLI) | payer OTHER, SELFPAY ==
[2023-01-04 07:33] LABS: HCT 42.5 % (40.0-50.0); HGB 14.9 g/dL (13.5-17.5); MCH 30.3 pg (27.0-33.0); MCHC 35.1 % (32.0-36.0); MCV 86 fL (80-95); MPV 10.1 fL (8.0-11.0); Platelet Count 234 10^3/uL (130-400); RBC 4.92 10^6/uL (4.36-5.78); RDW 12.7 % (11.8-14.1); RDW-SD 40.2 fL; WBC 6.53 10^3/uL (4.4-10.8)
[2023-01-04 07:34] LABS: ESR 1 mm/hr (0-20)
[2023-01-04 07:53] LABS: Anion Gap 10.1 mmol/L (3-11); BUN 15 mg/dL (7-18); CO2 26.9 mmol/L (21.0-32.0); CREATININE 0.8 mg/dL (0.70-1.30); Calcium 9.2 mg/dL (8.5-10.1); Chloride 102 mmol/L (98-107); Estimated GFR 100.69 (mL/min/1.73m2); Glucose 114 mg/dL (74-106); Potassium 3.8 mmol/L (3.5-5.1); Sodium 139 mmol/L (136-145)
[2023-01-04 08:31] LABS: C-Reactive Protein 0.42 mg/dL (0.0-0.3)
[2023-01-04 10:22] LABS: Hemoglobin A1C 5.7 % (<5.7)
== END 2023-01-04 03:28 | disposition home or self-care (01) ==
PROVIDERS: PCP Family Medicine; Visit Provider Student in an Organized Health Care Education/Training Program
DX: M25.561 Pain in right knee (principal); M17.11 Unilateral primary osteoarthritis, right knee; I10 Essential (primary) hypertension; E78.5 Hyperlipidemia, unspecified; R73.01 Impaired fasting glucose; M85.80 Other specified disorders of bone density and structure, unspecified site; M15.9 Polyosteoarthritis, unspecified; G56.02 Carpal tunnel syndrome, left upper limb; Z79.52 Long term (current) use of systemic steroids; M35.3 Polymyalgia rheumatica; Z01.818 Encounter for other preprocedural examination; Z01.812 Encounter for preprocedural laboratory examination
CPT/HCPCS: 36415; 80048; 85027; 85652; 83036; 86140

== ENCOUNTER 2023-01-10 05:59 | Day surgery (SDC) | payer OTHER, SELFPAY ==
[2023-01-10] VITALS (10 sets, daily range): BP systolic 105–154; BP diastolic 71–89; PULSE 56–66; RESP 16–18; TEMP 36.1–36.7; O2SAT 94–98; BMI 28.2
[2023-01-10] MEDS: Celecoxib 200 MG CAP 400 MG PO (06:40)
[2023-01-10] MEDS: Gabapentin 300 MG CAP PO (06:40)
[2023-01-10] MEDS: Lactated Ringers 1,000 ML 80 ML IV (06:40)
[2023-01-10] MEDS: Acetaminophen 500 MG TAB 1000 MG PO (06:40)
--- NOTE | 2023-01-10 06:46 | W.ANESPRE ---
General Info Date of Service Date Performed: 01/10/23 Height: 5 ft 7 in Weight: 81.7 kg Body Mass Index (BMI): 28.2 Surgical Procedure: Operation Date: 01/10/23 07:40 Proposed Procedure Side Surgeon p Knee Total Arthroplasty, Cementless CR Right Dwayne Zuniga MD Meds Allergies and Home Medications Allergies Allergy/AdvReac Type Severity Reaction Status Date / Time sulfamethoxazole Allergy Unknown Rash Verified 01/10/23 06:10 hydrocodone bitartrate AdvReac Intermediate nausea/vomi Verified 01/10/23 06:10 [From Vicodin] ting Fhnycvm-USH-ZlC Reductase AdvReac Mild recurrence Verified 01/10/23 06:10 Inhibitor of PMR [Scxijjo-Ugk-Xfv Reductase symptoms Inhibitor] hayfever AdvReac Mild Uncoded 01/09/23 12:55 Home Medication Medication Instructions Recorded cholecalciferol (vitamin D3) 50 2,000 unit PO DAILY 07/07/15 mcg (2,000 unit) tablet prednisone 1 mg tablet,delayed 1 mg PO DAILY 04/12/21 release acetaminophen 500 mg capsule 1,000 mg PO Q8H PRN PRN #30 caps 08/24/21 ibuprofen 600 mg tablet 600 mg PO TID #30 tabs 08/24/21 sildenafil 50 mg tablet 50 mg PO DAILY PRN sexual activity 08/07/22 #30 tabs amlodipine 10 mg tablet 10 mg PO DAILY #90 tabs 01/09/23 Current Visit Medications: Current Medications Generic Name Dose Route Start Last Admin Trade Name Freq PRN Reason Stop Dose Admin Acetaminophen 1,000 mg 01/10/23 06:00 01/10/23 06:40 Acetaminophen 500 Mg Tab PO 01/10/23 16:00 1,000 mg PREOP SOPHIA Administration Celecoxib 400 mg 01/10/23 06:00 01/10/23 06:40 Celecoxib 200 Mg Cap PO 01/10/23 16:00 400 mg PREOP SOPHIA Administration Gabapentin 300 mg 01/10/23 06:00 01/10/23 06:40 Gabapentin 300 Mg Cap PO 01/10/23 16:00 300 mg PREOP SOPHIA Administration Tranexamic Acid 1,000 mg/ 60 mls @ 360 mls/hr 01/10/23 06:00 Sodium Chloride IVPB 01/10/23 16:00 PREOP SOPHIA Ringer's Solution 1,000 mls @ 80 mls/hr 01/10/23 06:00 01/10/23 06:40 IV 02/08/23 23:59 80 mls/hr INFUSION SOPHIA Administration Cefazolin Sodium/Dextrose 2 gm in 50 mls @ 100 mls/hr 01/10/23 06:00 Ancef Duplex IVPB 02/08/23 23:59 PREOP SOPHIA IV Miscellaneous Supplies 1 each 01/10/23 06:00 Iv Access IV 02/08/23 23:59 DIRECTED SOPHIA Sodium Chloride 0 ml 01/10/23 06:00 Normal Saline Flush 10 Ml Syr IV 02/08/23 23:59 PRN PRN Sodium Chloride 0 ml 01/10/23 06:00 Normal Saline 10 Ml Vial IJ 02/08/23 23:59 DIRECTED PRN Sterile Water 0 ml 01/10/23 06:00 Water,Injection,Sterile 10 Ml Vial IJ 02/08/23 23:59 DIRECTED PRN PFSH Active Problems Active Problems: Problem Status Onset Code PMR (polymyalgia rheumatica) Osteoarthritis of right knee M17.11 Hernia K46.9 Erectile dysfunction N52.9 Arthralgia of both hands ~01/2022 M25.541, M25.542 Bilateral knee swelling M25.461, M25.462 Right flank pain R10.9 Transaminitis R74.01 Ureterolithiasis N20.1 Abnormal CAT scan R93.89 Enlarged prostate N40.0 Left flank pain R10.9 Pelvic pain R10.2 Hyperlipidemia E78.5 Osteoarthritis involving multiple joints on both sides of body ~07/2020 M15.9 Lichen planus L43.9 Plantar fasciitis of right foot ~12/2019 M72.2 senior care (current) use of systemic steroids Z79.52 Kidney stone on right side N20.0 Carpal tunnel syndrome 06/30/13 G56.00 Essential hypertension 08/03/15 I10 Osteopenia 12/30/15 M85.80 Polymyalgia rheumatica 07/07/15 M35.3 Sensorineural hearing loss, bilateral 02/22/16 H90.3 Spinal stenosis, cervical region 04/08/15 M48.02 Medical History Medical History HTN (hypertension) PMR (polymyalgia rheumatica) Surgical History Surgical History Colonoscopy - IV Sedation (07/14/13) Hx of foot surgery Hx of hernia repair Hx of rotator cuff surgery Right Hx of tonsillectomy Trigger finger, left middle finger s/p trigger release DOS: 08/24/21 Trigger finger, left ring finger s/p trigger release DOS: 08/24/21 Tobacco Smoking/Tobacco Use Status: Former Tobacco Use Passive smoking exposure: No Second hand exposure: No Alcohol Alcohol Intake: current Alcohol intake frequency: a few times a month Alcohol type: beer Substance Use Substance use: Daily Substance use type: marijuana Details: alcohol: t-1, couple drinks Vital Signs and Lab Results Vital Signs Most Recent Vital Signs in EMR: Most Recent Vital Signs Temp Pulse Resp BP Pulse Ox 36.4 C L 62 16 154/89 H 98 01/10/23 06:12 01/10/23 06:12 01/10/23 06:12 01/10/23 06:12 01/10/23 06:12 Lab Results Blood Type / Crossmatch: No Data to Display Complete Blood Count: White Blood Count 6.53 10^3/uL (4.4-10.8) 01/04/23 07:16 Red Blood Count 4.92 10^6/uL (4.36-5.78) 01/04/23 07:16 Hemoglobin 14.9 g/dL (13.5-17.5) 01/04/23 07:16 Hematocrit 42.5 % (40.0-50.0) 01/04/23 07:16 Platelet Count 234 10^3/uL (130-400) 01/04/23 07:16 Complete Metabolic Panel: Sodium 139 mmol/L (136-145) 01/04/23 07:16 Potassium 3.8 mmol/L (3.5-5.1) 01/04/23 07:16 Chloride 102 mmol/L (98-107) 01/04/23 07:16 Carbon Dioxide 26.9 mmol/L (21.0-32.0) 01/04/23 07:16 BUN 15 mg/dL (7-18) 01/04/23 07:16 Creatinine 0.8 mg/dL (0.70-1.30) 01/04/23 07:16 Est GFR (CKD-EPI 2020) 100.69 (mL/min/1.73m2) 01/04/23 07:16 Calcium 9.2 mg/dL (8.5-10.1) 01/04/23 07:16 Glucose 114 mg/dL (74-106) H 01/04/23 07:16 Hemoglobin A1c 5.7 % (<5.7) 01/04/23 07:16 C-Reactive Protein 0.42 mg/dL (0.0-0.3) H 01/04/23 07:16 Liver Function Panel: No Data to Display Coagulation Panel: No Data to Display Cardiac Panel: No Data to Display Arterial Blood Gas: No Data to Display Venous Blood Gas: No Data to Display Pancreas Panel: No Data to Display Thyroid Panel: No Data to Display Infectious Disease: No Data to Display Blood Cultures: No Data to Display Toxicology Panel: No Data to Display Anesthesia Assessment and Plan Anesthesia History Personal History: No History of Anesthesia Complications Family History: No Family History of Anesthesia Complications Exercise Tolerance Exercise Tolerance: Metabolic Equivalents>4 Pertinent Negatives Pertinent Negatives: No Symptoms of GERD, No Major Cardiovascular Symptoms or Complaints, No Major Pulmonary Symptoms or Complaints and No History of CVA/TIA Cardiac & Pulmonary Exam Cardiac Exam: Normal S1/S2 Heart Sounds Pulmonary Exam: Clear Bilateral Breath Sounds Implantable Cardiac Device Does patient have a Pacemaker or an ICD?: No Airway Exam Known Difficult Airway: No Mallampati Class: 1 Mouth Opening: Normal (> 3cm) Thyromental Distance: Greater than 3 cm Neck Range of Motion: Full ROM Neck Circumference: Normal Teeth Condition: Normal Dentition Airway Comments: Top front teeth chipped ASA Classification ASA Score: ASA 2 Emergency Case?: No NPO Status NPO Status: NPO Clears >2 hours, Solids >8 hours Anesthesia Plan Resuscitation Status: Full Code Anesthesia Technique: Spinal Anesthesia Airway Planned: Natural Airway Pain Management: Surgeon and patient request nerve block Monitors Used: Standard Monitors Preoperative Comments:: Took prednisone this am. Plan [place].
[2023-01-10] MEDS: ceFAZolin 2 GM/50 ML BAG IVPB (07:32)
--- NOTE | 2023-01-10 08:33 | W.ANESNERVE ---
Nerve Block Single Injection Procedure Date and Time Date Performed: 01/10/23 Procedure Start: 07:20 Location Where Procedure Performed Procedure Location: Day Surgery Unit Reason Performed: Postoperative Analgesia Requesting Provider: Dwayne Zuniga Timeout Performed Timeout Performed: Yes Monitoring Used ECG, Blood Pressure, SpO2 and See EMR for corresponding vital signs Sterility Sterility: Hand Hygiene, Surgical Cap, Surgical Mask, Sterile Gloves, Sterile Drape/Sheet and Chlorhexidine Sedation Given During Procedure Sedation Given (Indicate Dose Given): No Sedation given Patient Mental Status Patient Mental Status: Awake Nerve Block 1st Nerve Block: Laterality: Right Block Type: Adductor Canal Ultrasound Image Saved?: Yes Needle / Catheter Used: 100mm SonoPlex II Local Anesthetic Bolus (Indicate Dose Given): Lidocaine used for local infiltration of skin, Injected in 3-5ml increments after negative blood aspiration and Bupivacaine 0.25% Dose:: 15 ml Additives (Indicate Dose Given): None Ultrasound: Sterile probe cover and gel used Nerve Stimulator: Not Used Paresthesia: None Procedure Tolerated: No Complications and Patient tolerated well Procedure Outcome: Successful Performed By: Charlene John
--- NOTE | 2023-01-10 09:33 | W.PM.OP ---
Date of service: 01/10/23 Time of Service: 09:05 Operative Note Operative Note DATE OF PROCEDURE: 01/10/23 PRE-OP DIAGNOSIS: Right Knee Osteoarthritis POST-OP DIAGNOSIS: same PROCEDURE: Right Total Knee Replacement SURGEON: Dwayne Zuniga TEACHER OF THE HANDICAPPED: Zaria Wilson ANESTHESIA TYPE: Spinal Refer to Anesthesia Record ESTIMATED BLOOD LOSS: 100 PATHOLOGY: none sent TOURNIQUET TIME: 0 COMPLICATIONS: None Patient was transported to: PACU Patient's condition: stable Implants: 1. Depuy Attune Cementless Cruciate Retaining Femoral Component, Size 7 2. Depuy Attune Cementless Fixed Bearing Tibial Component, Size 6 3. Depuy Attune 7x6 CR/FB Poly 4. Depuy Attune Patellar Component, Size 38 Indications: I have seen Hudson in clinic for symptoms of knee arthritis, confirmed with radiographic findings. He has exhausted nonoperative methods and was having significant limitations in daily function and desired better function and less pain. I discussed the technical details of a knee replacement. I explained the risks of the procedure to include, but not limited to, bleeding, infection, pain, stiffness, fracture, damage to nerves and vessels, damage to muscles and tendons, loosening, need for repeat procedure, blood clot and cardiopulmonary demise. Despite these risks, Hudson elected to proceed. Findings: There was significant signs of arthritis throughout the knee with notable synovitis. Procedure Description: Hudson was greeted in the preoperative holding area where the correct side was identified and marked. The consent was reviewed with the patient and signed. The history and physical was updated. All questions were answered. Preoperative medications were administered: Acetaminophen 1000mg, Celebrex 400mg, and Gabapentin 300mg. An adductor canal block was then administered by the anesthesia team in the PACU. He was taken back to the operating room. A spinal anesthestic was then administered. The patient was placed into the supine position on the operating room table. A nonsterile tourniquet was placed high onto the leg but only used for cementing. Posts were placed for positioning during the procedure. All bony prominences were well padded. Prophylactic antibiotics in the form of Cefazolin were administered. 1g of Tranxemic Acid was given intravenously within 30 minutes of incision. The right leg was then prepped with Chloraprep and draped in a standard fashion with impervious stockinette. A second prep with Chloraprep was performed prior to application of Iodine impregnated skin protection. A timeout to confirm correct identity, side and site, procedure, allergies, anesthesia, and medical concerns was performed. With the knee in some flexion, a midline incision was made overlying the knee. Full thickness skin flaps were raised once the extensor mechanism was encountered. These were raised medially and laterally. Any bleeding was controlled with electrocautery. Once the extensor mechanism was fully exposed, a medial parapatellar arthrotomy was performed in a flexed position. All bleeding from the arthrotomy and the geniculate arteries was coagulated. A medial subperiosteal peel was performed with electrocautery to the midcoronal plane. Due to the significant varus deformity the entire medial tibial plateau was exposed. The fat pad was removed while keeping the patellar tendon protected. The anterior distal femur synovium was removed for later visualization. The ACL and PCL were resected and the anterior horn of the lateral meniscus was transected. The knee was then flexed with the patella everted. Large osteophytes from the tibia were removed. Large osteophytes from the femur were removed. An aggressive synovectomy was also performed due to the abundant synovitis within the knee. Using a step drill, and based on preoperative templating, the femoral canal was entered. This was done with a step drill without any difficulty. The intramedullary distal femoral cut guide was inserted, set to a 5 degree valgus cut and 9mm cut thickness. The distal femoral cut guide was then held in position and pinned. With the soft tissues protected, the distal cut was performed. This was passed over a few times to ensure a planar cut. I then turned attention to the tibia. The extramedullary guide was placed onto the leg. The distal aspect was slid medial to adjust for position of center of ankle and stay in line with shaft of the tibia. Approximately 3-5 degrees of posterior slope was kept in the proximal cutting guide. The center of the guide was aligned with the PCL. The stylus was used to assess cut thickness. The medial side, most involved side, was set for a 2mm cut. This was then held in position and pinned into place with 2 additional pins and a cross pin for stability. The medial and lateral collateral ligaments were protected and the cut was performed. With this completed, it was assessed and noted to be of appropriate dimensions. The guide was removed. A spacer block was inserted and the knee was brought into extension. The 6mm spacer block provided full extension, without hyperextension and with stability of both the medial and lateral collateral ligaments was assessed. The pins from the femur and the tibia were then removed. The distal femur was then sized. The anterior stylus was placed onto the lateral ridge of the anterior femur. This indicated a size 7 femur. The external rotation of the guide was adjusted to 3 degrees to match the epicondylar axis, perpendicular to Dixon?s line. The 4-in-1 cutting guide was the placed. The posterior medial femur cut was evaluated and appeared of good thickness. The spacer block was inserted underneath the cutting guide and stability was confirmed in 90 degrees of flexion. An tigre wing was used to confirm appropriate position of the anterior cut to avoid notching. This cutting guide was ensured to be flush on the cut surface and then pinned into place with headed pins. While protecting the soft tissues, quad tendon, and collateral ligaments, the anterior and posterior cuts were performed with a saw. The central two pins were removed and the posterior and anterior chamfers were cut next. The notch-cutting guide was placed. This was pinned to lateralize the femoral component as much as possible while keeping it flush on the cut surface. This was then pinned into position. A reciprocating saw was used to make the notch cut. A rasp smoothed the cut surfaces. The medial and lateral menisci were removed. A trial femoral component was then inserted, impacted down to the cut surfaces, and the lug holes were drilled. A provisional trial tibial component was placed and the knee was brought through range of motion. There was noted to be excellent extension and flexion. There was no significant instability. The patella was tracking without thumbs. A size 6mm polyethylene component provided the best range of motion and stability with less than 2mm gapping with medial and lateral stress and full extension without significant hyperextension. The tibial cut surface was fully exposed. The tibia was then sized as a 6. The tibia had been previously marked during trialing to correspond to the center of the tibial component to help with rotation. The trial was aligned to this zaria, approximately rotated to the medial 1/3rd of the tibial tubercle. The trial was pinned into place. The tibia was prepared with a reamer and a keel punch and lug holes. The knee was then brought into extension and the patella was measured as 24mm. Using the patellar clamp and cut guide, this was resected to a flat surface with at least 13mm of thickness remaining. The size 38 patella fit the best. This was oriented and then clamped into position. The lugs were drilled. The trial components were removed. The final components were opened on the back table. The periosteal and capsular tissues, especially posteriorly, around the knee were then systematically injected with a periarticular cocktail consisting of 246mg of Ropivacaine, 0.5mg of Epinephrine, 0.08mg of Clonidine, and 30mg of Ketorolac, diluted to 100cc. On the back table, with the implants opened, the cement was mixed. One batch of high viscosity cement was prepared with vacuum assistance. After the cement was ready a small amount was placed on the cut surface of the patella and the patellar button was clamped into position and held. While the cement was hardening, the cementless knee components were placed. Starting with the tibial component, the tibia was subluxed anteriorly and the lug holes of the component were lined up. The tibia was then impacted with an impactor and mallet until the tibial component was in contact with the tibia. Then, the femoral component was inserted. The final polyethylene component was inserted. The lug holes were aligned and the component was impacted into position. The knee was irrigated with Surgiphor Betadine solution. This was allowed to sit in the knee for 3 minutes and then it was irrigated out with saline. After the cement had finally cured, approximately 15min, the clamp was removed from the patella and the knee was taken through range of motion. The patella was tracking with a no-thumbs technique. The capsule was then reapproximated with a No. 1 Vicryl at multiple locations. The capsule was finally closed with a No. 2 Stratafix, barbed suture. The second dosing of 1g TXA was started. Deep tissues were then reapproximated with 0 Vicryl and 2-0 Vicryl. The skin was closed with a running 3-0 Monocryl in a subcuticular fashion. This was reinforced with skin glue. A Mepilex silver dressing was applied along with a [id number] LONNIE wrap. A CryoCuff was applied. Hudson was transferred to the hospital bed without difficulty an suffering no apparent complication. He has a good prognosis. Physical therapy will start today and without restrictions, weight-bearing as tolerated. Aspirin 81mg BID will be used for DVT prophylaxis.
[2023-01-10] MEDS: oxyCODONE 5 MG TAB PO ×2 (10:36→11:02)
--- NOTE | 2023-01-10 11:03 | NUR.NOTE ---
C/O persistent 6 out of 10 pain. Requesting for and given additional dose of Oxycodone to total 10 mg. Nursing Note:
--- NOTE | 2023-01-10 11:44 | W.ANESPOSTOP ---
Postoperative Evaluation Date, Time and Location Date Performed: 01/10/23 Time Performed: 11:44 Patient Location: Day Surgery Unit Vital Signs Most Recent Imported Vital Signs: Most Recent Vital Signs Temp Pulse Resp BP Pulse Ox 36.4 C L 56 L 16 153/82 H 97 01/10/23 10:30 01/10/23 10:30 01/10/23 10:30 01/10/23 10:30 01/10/23 10:30 Pain Score Most Recent Pain Score: Most Recent Pain Score Pain Level 6 01/10/23 10:30 Assessment Mental Status: Awake (Alert & Oriented to Patient Baseline) Airway and Respiratory Function: Patent airway with normal (patient baseline) respiratory exam Cardiovascular Function: Hemodynamically Stable Hydration Status: Adequately Hydrated Nausea & Vomiting: No Nausea or Vomiting Pain: Pain is tolerable per patient Peripheral Nerve Block: Regional nerve block not resolved at time of post operative discharge
--- NOTE | 2023-01-10 12:05 | PT.INIE ---
PT Notes Visit Reasons: R TKR Physical Therapy Day Surgery Initial Evaluation Date: 01/10/2023 Referring Doctor: GHISLAINE Harrell PT Orders: PT CONSULT: S/P Ortho Surgery Precautions: WBAT on the R LE with AD. Patient Profile/Admitting Diagnosis: Arcenio is a 62-year-old male patient with degeneratove joint disease of the R knee and is S/P R total knee arthroplasty on postoperative day 0. PMHX: Medical History? HTN (hypertension) PMR (polymyalgia rheumatica) Surgical History? Colonoscopy - IV Sedation (07/14/13) Hx of foot surgery Hx of hernia repair Hx of rotator cuff surgery Right Hx of tonsillectomy Trigger finger, left middle finger s/p trigger release DOS: 08/24/21 Trigger finger, left ring finger s/p trigger release DOS: 08/24/21 Social History/Home Situation: Lives with in a private home with 3 steps to enter with rails on b sides. Independent with all aspects of ADLs prior to surgery. 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 Equipment Owned/DME: None Subjective: No pain in R knee. Just had second oxycodone earlier. Denies headache, chest pain and lightheadedness throughout. Objective: General Observation: Resting in bed. TEDS to R LE. Cyrocuff to R knee. Mental Status: Alert and oriented x 4 Pain: Mild discomfort on the R quad while walking ROM: Right Lower Extremity: Hip flexion WFL. Hip abduction WFL. Knee flexion 10 degrees to 100 degrees actively. Knee extension -10 degrees actively. Ankle dorsiflexion WFL. Ankle plantarflexion WFL. Left Lower Extremity: Hip flexion WFL. Hip abduction WFL. Knee flexion WFL. Ankle dorsiflexion WFL. Ankle plantarflexion WFL. Strength: Right Lower Extremity: Hip flexors 5/5. Hip abductors 5/5. Knee flexors 3-/5. Knee extensors 3-/5. Ankle dorsiflexors 5/5. Ankle plantarflexors 5/5. Left Lower Extremity:Hip flexors 5/5. Hip abductors 5/5. Knee flexors 5/5. Knee extensors 5/5. Ankle dorsiflexors 5/5. Ankle plantarflexors 5/5. Sensation: Intact as to pain and light pressure in bilateral lower extremities Bed Mobility/Transfers: Guided and instructed patient with safe performance/technique with: Supine to sit supervision Sit to stand supervision Stand to sit stand by assist Bed to chair stand by assist Gait: Provided guidance in safe movement sequencing, limb advancement, correct gait pattern covering 150 feet of level surface ambulation using the FWW with stand by assist. No loss of balance. No shortness of breath. Stairs: Provided guidance in safe movement sequencing, limb advancement, correct gait pattern in ascending and descending 6 x 4 inch steps and 4 x 6-inch steps while holding onto B rails with stand by assist only. Emphasis provided on bending the R knee as it goes up eacg step. Balance: Static Sitting: Normal Dynamic Sitting: Normal Static Standing: Fair Dynamic Standing: Far Special Tests: Mobility Limitations Standardized Measure [facility] AM-PAC 6 clicks Basic Mobility Inpatient Short Form: Raw Score: 24 CMS Score: 0% deficit Informed Consent/Education: Patient instructed in purpose of PT consult. Packet containing TKA exercise protocol has been given to patient. Education and training on initial set of exercises that can be done at home have been completed with patient. Printout given to patient for optimal compliance and mastery. Trained patient with correct performance of exercises below to maximize motor control, joint flexibility, soft tissue extensibility of the R knee musculature. Supine quads sets x 5 with 5 sh Supine heels slides x 5 Supine ankle DF/PF x 10 Small range straight leg raise x 5 Seated marches x 5 Assessment: Patient requires the use of a front wheeled walker for all mobility ADL performance to maximize independence and reduce fall risk. Patient presents with clinical signs and symptoms consistent with current/admitting diagnoses that have resulted to mobility limitations, gait instability, generalized weakness, and impairment of motor control as demonstrated by the following impairment level findings: 1. Decreased strength to right knee major muscle groups 2. Impaired standing balance 3. Limitation of joint range of motion in right knee Impairments are contributing to the following functional limitations: 1. Inability to safely ambulate without assistive device 2. Increase completion time for mobility ADL performance 3. Increased fall risk Patient is assessed as a 38574 moderate complexity based on the following: History: 62-year-old female with impairment level findings, functional limitations, and past medical history as indicated above Examination: Demonstrable impairment in strength, balance, and mobility level with underlying impairments and functional limitations as documented above Presentation: Evolving Decision Makin moderate complexity Goals: N/A. PT evaluation and 1-2 treatment sessions only for functional mobility training using recommended AD and for HEP instruction. Plan of Care/Treatment Plan: N/A. PT evaluation and 1-2 treatment session only for functional mobility training using recommended AD and for HEP instruction. DISCHARGE RECOMMENDATIONS: Home when medically cleared by orthopedic surgeon. Recommend outpatient PT services in order to optimize functional mobility outcomes and facilitate return to independent community ambulation without an assistive device. TREATMENT CODE/TIME: 72243 x 20 minutes for 1 unit, 08407 x 11 minutes for 1 unit beginning at 11:23 AM. Thank you for the opportunity to participate in the care of this patient. Anabel Laureano PT, DPT, CLT [facility] [place], [place]
--- NOTE | 2023-01-10 12:06 | W.PM.DSUDISC ---
Date of service: 01/10/23 Time of Service: 12:06 Discharge Plan Disposition Patient Disposition: Home Condition: Good Discharge Details Reason For Visit: R TKR Attending Provider: Dwayne Zuniga Primary Care Provider: Alexandru Faith Home Meds and New Rx's Prescriptions: New celecoxib 200 mg capsule 200 mg PO BID Qty: 60 0RF aspirin 81 mg tablet,delayed release (DR/EC) 81 mg PO BID Qty: 60 0RF acetaminophen 500 mg tablet 1,000 mg PO TID Qty: 90 3RF pantoprazole 40 mg tablet,delayed release (DR/EC) 40 mg PO DAILY Qty: 30 0RF dexamethasone 4 mg tablet 4 mg PO DAILY Qty: 2 0RF gabapentin 300 mg capsule 300 mg PO QHS Qty: 14 0RF oxycodone 5 mg tablet 5 mg PO Q4H MDD 6 tabs PRN (Reason: pain) Qty: 20 0RF Continued sildenafil 50 mg tablet 50 mg PO DAILY PRN (Reason: sexual activity) Qty: 30 0RF Rx Instructions: administer 30 minutes to 4 hours before activity cholecalciferol (vitamin D3) 2,000 UNIT tablet 2,000 unit PO DAILY Rx Instructions: Dr Choe-[facility] [place], [place] amlodipine 10 mg tablet 10 mg PO DAILY Qty: 90 3RF Discontinued prednisone 1 mg tablet,delayed release (DR/EC) 1 mg PO DAILY Rx Instructions: Taper q4-6 wks by .5 mg, note dated 01/08/20 cgc 1 mg per 04/11/21 [facility] [place] [place] Rheumatology note ibuprofen 600 mg tablet 600 mg PO TID Qty: 30 0RF acetaminophen 500 mg capsule 1,000 mg PO Q8H PRN PRNQty: 30 0RF Discharge Instructions Additional Instructions: Total Knee Discharge Instructions Activity: The most important activity is to walk and to work on gentle motion (both flexion and extension). You should try to take short walks a few times a day. It is important that when resting you work on keeping the knee straight. Avoid putting a pillow behind the knee as this will encourage flexion. Work on range of motion exercises as provided by Physical Therapy. - Start outpatient physical therapy within 2 weeks. - You should wear the JOE hose on both legs for 2 weeks. You may remove these at night. You may also use any compression sock in place of the JOE hose. - Utilize [employer] to review exercises, see videos on exercises and obtain basic information pertaining to your surgery and your recovery. Dressing: Remove the Isaac wrap by 2 days after your surgery and put on the JOE stocking given to you from the hospital. Keep the surgical dressing (underneath the ISAAC wrap) in place for at least one week. After the first week it may be removed and replaced with light gauze and tape or nothing. The wound and dressing may get wet after 3 days but avoid soaking the dressing or otherwise it will need to be changed. Many people prefer covering the dressing with cling wrap (saran wrap) to minimize it from getting soaked. If it gets wet, just pat dry. If it starts to peel off then it will need to be changed. Medications: - You should take Tylenol and anti-inflammatory Celebrex as your primary pain control medications. If the Celebrex is too expensive or not covered, please call the office for another alternative (Advil/Ibuprofen or Naproxen/Aleve) - You have been prescribed a stronger pain medication Oxycodone for breakthrough pain, take as needed as prescribed. - You have also been prescribed a stomach acid reduction agent Pantoprozole to help reduce stomach acid and reflux. - You have been prescribed Gabapentin to take at night for restlessness and nerve pain. - You will be taking Aspirin 81mg twice a day for DVT prevention unless instructed otherwise. - You have also been prescribed Decadron to take to control post-operative nausea and pain. You will start this tomorrow. You will then continue your prednisone as normal after you have finished the course of Decadron. - If you have constipation you should take Colace or Miralax (both [id number]). It takes most people 3-4 days to have a bowel movement. Follow-up: 2 weeks 01/25/2023 @ 11:30 am. If you have any acute concerns or questions, please do not hesitate to contact the office at [phone]. You may contact Dr. Zuniga with any questions after hours through the hospital at [phone] or on his cell phone at [phone]. Stand Alone Forms: Anesthesia Discharge Inst., Anes.Nerve Block Instructions, Tanja Le (DSU) Referrals: Dwayne Zuniga MD [ [facility] STAFF PHYSICIAN] - Equipment/Supplies: Walker Activity:: Activity as Tolerated Shower/Bathe:: 72 hours Diet:: As Tolerated Discharge Orders Discharge Orders: Discharge Order (Routine); Ordered 01/10/23 Ordered By: Dwayne Zuniga DS: Diagnosis Discharge Diagnosis (1) Osteoarthritis of right knee: Status: Resolved
== END 2023-01-10 12:35 | disposition home or self-care (01) ==
PROVIDERS: PCP Family Medicine; Visit Provider Student in an Organized Health Care Education/Training Program
PROC: (CPT 27447; principal; 2023-01-10 07:30)
DX: M17.11 Unilateral primary osteoarthritis, right knee (principal); I10 Essential (primary) hypertension; M35.3 Polymyalgia rheumatica
CPT/HCPCS: 27447; 76942; 97162; 97530; J0690; J1100; J2001; J2405

== ENCOUNTER 2023-01-25 13:01 | Outpatient (CLI) | payer OTHER, SELFPAY ==
--- NOTE | 2023-01-25 11:30 | DI.RAD_ITS ---
Exam(s) XR STANDING ALIGNMENT XR KNEE RT 1V EXAM: XR STANDING ALIGNMENT and XR knee RT 1 V CLINICAL HISTORY: 1ST POST OP R TKA. TECHNIQUE: 2D digital imaging was performed. Five images were obtained. COMPARISON: CR XR STANDING ALIGNMENT from 11/20/2022 CR XR KNEE RT 1V from 01/25/2023 FINDINGS: BONES: Degenerative changes are again seen in the hips bilaterally. The patient now has a right tota l knee replacement. The orthopedic hardware appears in good position. Mild degenerative changes are seen in the medial joint compartment of the right knee with joint space narrowing and osteophytes pr esent. The ankles are well maintained.There is no significant leg length discrepancy. SOFT TISSUE: Normal. IMPRESSION: Right total knee replacement. DATA REPOSITORY: RADIATION DOSE DELIVERED:
== END 2023-01-25 13:02 | disposition home or self-care (01) ==
LOC: DIORS 13:01
PROVIDERS: PCP Family Medicine; Visit Provider Student in an Organized Health Care Education/Training Program
DX: Z96.651 Presence of right artificial knee joint (principal); M16.0 Bilateral primary osteoarthritis of hip; Z47.1 Aftercare following joint replacement surgery
CPT/HCPCS: 73560; 77073

== ENCOUNTER → 2023-05-15 09:43 | Outpatient (CLI) | payer OTHER, SELFPAY ==
--- NOTE | 2023-05-15 08:45 | DI.RAD_ITS ---
Exam(s) XR CHEST 2V PA LATERAL EXAM: XR CHEST 2V PA LATERAL CLINICAL HISTORY: Two weeks of cough, dyspnea, R05.9. TECHNIQUE: 2D digital imaging was performed. COMPARISON: CR,XR XR CHEST 2V PA LATERAL from 11/22/2020 FINDINGS: 2 views: Heart size is upper normal. The mediastinum is not widened. Lungs are clear. No infiltrates nor pleural effusions. Right and right AC joint noted. Probably postsurgical. IMPRESSION: No acute pulmonary findings. DATA REPOSITORY: RADIATION DOSE DELIVERED:
== END ==
PROVIDERS: PCP Family Medicine; Visit Provider Family Medicine
DX: R05.9 Cough, unspecified (principal)
CPT/HCPCS: 71046

== ENCOUNTER 2023-07-18 04:20 | Outpatient (CLI) | payer OTHER, SELFPAY ==
[2023-07-18 15:52] LABS: Abs Immature Grans 0.03 10^3/uL (0.0-0.06); Absolute Basophil Count 0.09 10^3/uL (0.0-0.2); Absolute Eosinophil Count 0.23 10^3/uL (0.0-0.7); Absolute Lymphocyte Count 1.85 10^3/uL (1.2-3.4); Absolute Monocyte Count 0.55 10^3/uL (0.1-0.8); Absolute Neutrophil Count 4.17 10^3/uL (1.2-6.7); Basophils % 1.3; Eosinophils % 3.3; HCT 41.4 % (40.0-50.0); HGB 14.3 g/dL (13.5-17.5); Immature Grans % 0.4; Lymphocytes % 26.7; MCH 29.7 pg (27.0-33.0); MCHC 34.5 % (32.0-36.0); MCV 86 fL (80-95); MPV 10.3 fL (8.0-11.0); Monocytes % 7.9; Neutrophils % 60.4; Platelet Count 253 10^3/uL (130-400); RBC 4.82 10^6/uL (4.36-5.78); RDW 13.2 % (11.8-14.1); RDW-SD 41.4 fL; WBC 6.92 10^3/uL (4.4-10.8)
[2023-07-18 16:00] LABS: ESR 2 mm/hr (0-20)
[2023-07-18 16:29] LABS: ALT 44 U/L (16-63); AST 26 U/L (15-37); Albumin 3.8 g/dL (3.4-5.0); Alkaline Phosphatase 70 U/L (46-116); Anion Gap 14.1 mmol/L (3-11); BUN 19 mg/dL (7-18); Bilirubin, Total 0.5 mg/dL (0.2-1.0); C-Reactive Protein 0.53 mg/dL (<or=0.5); CO2 23.9 mmol/L (21.0-32.0); Calcium 9.3 mg/dL (8.5-10.1); Chloride 104 mmol/L (98-107); Glucose 113 mg/dL (74-106); Potassium 3.6 mmol/L (3.5-5.1); Sodium 142 mmol/L (136-145); Total Protein 7.4 g/dL (6.4-8.2)
== END 2023-07-18 04:21 | disposition home or self-care (01) ==
PROVIDERS: PCP Family Medicine; Visit Provider Internal Medicine Rheumatology
DX: R21 Rash and other nonspecific skin eruption (principal); Z79.52 Long term (current) use of systemic steroids; G56.02 Carpal tunnel syndrome, left upper limb
CPT/HCPCS: 80053; 85652; 85025; 86140

== ENCOUNTER → 2023-10-26 00:51 | Outpatient (CLI) | payer OTHER, SELFPAY ==
--- NOTE | 2023-10-26 15:38 | DI.RAD_ITS ---
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 TECHNIQUE: 2D digital imaging was performed. Five views were performed. COMPARISON: MR MRI - CERVICAL SPINE WO CONT from 07/17/2016 FINDINGS: BONES: No fracture or destructive lesion. Vertebral bodies are normal in height. Endplate osteophyte s at C5-6 and C6-7. Mild facet joint degenerative changes. Right neural foramen are not well profil ed. There is mild neural foraminal narrowing at C5-6 and C6-7 on the left. DISKS: Moderate to severe narrowing of the C5-6 and C6-7 disc spaces. Remaining intervertebral disc spaces are maintained. ALIGNMENT: Straightening of the normal cervical lordosis which could be secondary to degenerative antonette nges and/or muscular spasm. The odontoid and atlantoaxial articulations are normal. SOFT TISSUE: Normal. The lung apices are clear. IMPRESSION: Degenerative disc changes at C5-6 and C6-7. DATA REPOSITORY: RADIATION DOSE DELIVERED:
== END ==
PROVIDERS: PCP Family Medicine; Visit Provider Internal Medicine Rheumatology
DX: M50.022 Cervical disc disorder at C5-C6 level with myelopathy (principal)
CPT/HCPCS: 72050

== ENCOUNTER 2023-11-13 04:40 | Outpatient (CLI) | payer OTHER, SELFPAY ==
[2023-11-13 07:31] LABS: Abs Immature Grans 0.01 10^3/uL (0.0-0.06); Absolute Eosinophil Count 0.41 10^3/uL (0.0-0.7); Absolute Lymphocyte Count 1.99 10^3/uL (1.2-3.4); Absolute Monocyte Count 0.77 10^3/uL (0.1-0.8); Basophils % 1.5 %; Eosinophils % 6.3 %; HCT 42.8 % (40.0-50.0); HGB 14.8 g/dL (13.5-17.5); Immature Grans % 0.2 %; Lymphocytes % 30.7 %; MCH 30.3 pg (27.0-33.0); MCHC 34.6 % (32.0-36.0); MCV 88 fL (80-95); MPV 9.8 fL (8.0-11.0); Monocytes % 11.9 %; Neutrophils % 49.4 %; Platelet Count 230 10^3/uL (130-400); RBC 4.89 10^6/uL (4.36-5.78); RDW 12.8 % (11.8-14.1); RDW-SD 41.1 fL; WBC 6.48 10^3/uL (4.4-10.8)
[2023-11-13 07:33] LABS: ESR 2 mm/hr (0-20)
[2023-11-13 08:01] LABS: ALT 47 U/L (16-63); AST 30 U/L (15-37); Albumin 3.6 g/dL (3.4-5.0); Alkaline Phosphatase 60 U/L (46-116); Anion Gap 8.9 mmol/L (3-11); BUN 10 mg/dL (7-18); Bilirubin, Total 0.81 mg/dL (0.2-1.0); C-Reactive Protein 0.63 mg/dL (<or=0.5); CO2 28.1 mmol/L (21.0-32.0); CREATININE 0.9 mg/dL (0.70-1.30); Chloride 103 mmol/L (98-107); Estimated GFR 96.57 (mL/min/1.73m2); Glucose 119 mg/dL (74-106); Potassium 3.8 mmol/L (3.5-5.1); Sodium 140 mmol/L (136-145); Total Protein 7.2 g/dL (6.4-8.2)
== END 2023-11-13 04:41 | disposition home or self-care (01) ==
LOC: LBO 04:40
PROVIDERS: PCP Family Medicine; Visit Provider Internal Medicine Rheumatology
DX: R21 Rash and other nonspecific skin eruption (principal); M85.80 Other specified disorders of bone density and structure, unspecified site; Z79.52 Long term (current) use of systemic steroids; G56.02 Carpal tunnel syndrome, left upper limb; M35.3 Polymyalgia rheumatica
CPT/HCPCS: 36415; 80053; 85652; 85025; 86140

== ENCOUNTER 2024-01-14 11:37 | Outpatient (CLI) | payer OTHER, SELFPAY ==
--- NOTE | 2024-01-14 07:45 | DI.RAD_ITS ---
Exam(s) XR KNEE RT 2V AP,LAT EXAM: XR KNEE RT 2V AP,LAT INDICATION: ANNUAL F/U R TKA. COMPARISON: CR XR KNEE RT 1V from 01/25/2023 TECHNIQUE: 2D digital imaging was performed. Two views. FINDINGS: Stable alignment of total knee prosthesis. No suspicious bony lucencies. DATA REPOSITORY: RADIATION DOSE DELIVERED:
== END 2024-01-14 11:38 | disposition home or self-care (01) ==
LOC: DIORS 11:37
PROVIDERS: PCP Family Medicine; Visit Provider Student in an Organized Health Care Education/Training Program
DX: Z96.651 Presence of right artificial knee joint (principal); Z47.1 Aftercare following joint replacement surgery
CPT/HCPCS: 73560

== ENCOUNTER 2024-03-11 02:17 | Outpatient (CLI) | payer OTHER, SELFPAY ==
[2024-03-11 14:27] LABS: Abs Immature Grans 0.02 10^3/uL (0.0-0.06); Absolute Basophil Count 0.09 10^3/uL (0.0-0.2); Absolute Monocyte Count 0.63 10^3/uL (0.1-0.8); Absolute Neutrophil Count 4.88 10^3/uL (1.2-6.7); Basophils % 1.2 %; ESR 2 mm/hr (0-20); Eosinophils % 2.6 %; HCT 38.7 % (40.0-50.0); HGB 13.7 g/dL (13.5-17.5); Immature Grans % 0.3 %; Lymphocytes % 23.6 %; MCH 30.6 pg (27.0-33.0); MCHC 35.4 % (32.0-36.0); MCV 86 fL (80-95); Monocytes % 8.3 %; Platelet Count 226 10^3/uL (130-400); RBC 4.48 10^6/uL (4.36-5.78); RDW 12.7 % (11.8-14.1); RDW-SD 40.3 fL; WBC 7.62 10^3/uL (4.4-10.8)
[2024-03-11 15:06] LABS: ALT 69 U/L (16-63); AST 43 U/L (15-37); Albumin 3.8 g/dL (3.4-5.0); Alkaline Phosphatase 62 U/L (46-116); Anion Gap 8.5 mmol/L (3-11); BUN 14 mg/dL (7-18); Bilirubin, Total 0.48 mg/dL (0.2-1.0); CO2 26.5 mmol/L (21.0-32.0); CREATININE 0.8 mg/dL (0.70-1.30); Calcium 9.3 mg/dL (8.5-10.1); Chloride 106 mmol/L (98-107); Estimated GFR 99.44 (mL/min/1.73m2); Glucose 97 mg/dL (74-106); Potassium 3.5 mmol/L (3.5-5.1); Sodium 141 mmol/L (136-145); Total Protein 7.3 g/dL (6.4-8.2)
[2024-03-11 15:08] LABS: C-Reactive Protein < 0.50 mg/dL (<or=0.5)
== END 2024-03-11 02:18 | disposition home or self-care (01) ==
PROVIDERS: PCP Family Medicine; Visit Provider Internal Medicine Rheumatology
DX: M35.3 Polymyalgia rheumatica (principal); Z79.52 Long term (current) use of systemic steroids; M48.02 Spinal stenosis, cervical region; M54.12 Radiculopathy, cervical region
CPT/HCPCS: 36415; 80053; 85652; 85025; 86140

== ENCOUNTER 2024-11-14 01:09 | Outpatient (CLI) | payer OTHER, SELFPAY ==
[2024-11-14 14:12] LABS: ALT 38 U/L (16-63); AST 25 U/L (15-37); Albumin 3.7 g/dL (3.4-5.0); Alkaline Phosphatase 70 U/L (46-116); Bilirubin, Direct 0.2 mg/dL (0.0-0.2); Bilirubin, Total 0.4 mg/dL (0.2-1.0); Total Protein 6.9 g/dL (6.4-8.2)
[2024-11-14 22:38] LABS: PSA, Screening 1.8 ng/mL (<=4.5)
== END 2024-11-14 01:10 | disposition home or self-care (01) ==
LOC: LBO 01:09
PROVIDERS: PCP Family Medicine; Visit Provider Family Medicine
DX: R79.89 Other specified abnormal findings of blood chemistry (principal); Z12.5 Encounter for screening for malignant neoplasm of prostate
CPT/HCPCS: 36415; 80076; 84153